=== PATIENT | female | born 1945 | race African-American/Black ===

== ENCOUNTER 2016-10-05 11:05 | Inpatient (IN) ==
[2016-10-05] MEDS ORDERED: ALBUTEROL 2.5 MG/3 ML NEB RESP TX STA (11:55)
[2016-10-05] MEDS ORDERED: diphenhydrAMINE 50 MG/1 ML VIAL IV STA (12:01)
[2016-10-05] MEDS ORDERED: methylPREDNISolone SOD SUC 125 MG/2 ML VIAL IV STA (12:01)
--- NOTE | 2016-10-05 12:13 | Emergency Department Note ---
Avtar Jiang Brooke, am scribing for, and in the presence of, Rodger Winslow MD 11:58 . Nayla Jiang James D, MD, personally performed the services described in this documentation, ascribed by Gabby Nova in my presence, and it is both accurate and complete . Arrival - Arrival Chief Complaint: Upper Respiratory Stated Complaint: Sent to ER by Isaiah Bustillo to see [facility] ED Nursing Triage Note: Patient had CXR done yesterday, was instructed by Dr. Bear's office to come back today to have follow up. C/o productive cough-onset two months ago. Mode of Arrival: Ambulatory Limitations: No Limitations Source: Patient, RN Notes Reviewed Time Seen by Provider: 10/05/16 11:43 - History of Present Illness HPI Narrative: Patient is a 70 year old female who presents to the ED with c/o shortness of breath and cough that is productive. Patient says she has been having problems for a while. She had a chest x-ray done at Dr. Bear's office, yesterday, and was told to come for follow up. Patient says she stopped smoking, six months ago , and says she smoked about a pack of cigarettes a day. Patient has PMHx of HTN , IDDM, and renal failure. She gets dialysis on Saturday, Saturday, and Saturday. She did go on Saturday but the treatment only lasted 2.5 hours because "the power went off." She did not go to dialysis today. Date of Last Menstrual Period: hysterectomy Allergies/Adverse Reactions: Allergies Allergy/AdvReac Type Severity Reaction Status Date / Time acetaminophen [From Tylenol] Allergy Verified 01/12/15 06:25 gabapentin [From Neurontin] Allergy Verified 01/12/15 06:25 IVP Dye Allergy Uncoded 01/12/15 06:25 Home Medications: Home Medications Medication Instructions Recorded Confirmed Type Calcitriol [Rocaltrol] 0.25 mcg PO MOWEFR 01/14/16 10/05/16 History Calcium Acetate 667 mg PO TID W/MEALS 01/14/16 10/05/16 History Carvedilol [Coreg] 12.5 mg PO BID 01/14/16 10/05/16 History Insulin NPH Hum/Reg Insulin Hm 10 unit SUBCUT BID W/MEALS 01/14/16 10/05/16 History [NovoLIN 70/30] Losartan Potassium 25 mg PO QAM 01/14/16 10/05/16 History traMADol TAB [Ultram] 100 mg PO Q6H PRN 01/14/16 10/05/16 History Atorvastatin [Lipitor] 40 mg PO QAM 10/05/16 10/05/16 History Review of System - Review of System 12 point system: reviewed and no additional remarkable complaints except as stated - Review of System Constitutional: Absent: fever Respiratory: Present: cough (productive), other (shortness of breath). Absent: respiratory distress Skin: Absent: rash Medical,Surgical,& Family Hx - Medical History Cardio: History of: Hypertension Neurology: No history of: Seizures Endocrine: History of: Diabetes Mellitus (IDDM) Renal: History of: Dialysis (MWF), Renal Failure - Surgical History Reproductive Surgeries: Surgical HX of;: Hysterectomy - Social History Smoking Status: Former smoker Frequency of Alcohol Use: None Type of Drug Use: None Exam Vital Signs: Vital Signs Temperature 98.4 F 10/05/16 11:08 Pulse Rate 88 10/05/16 12:26 Respiratory Rate 21 10/05/16 13:38 Blood Pressure 171/67 10/05/16 11:08 O2 Sat by Pulse Oximetry 97 10/05/16 11:08 GENERAL: This is a well-nourished well-developed black female in no apparent distress. VITAL SIGNS: Reviewed HEENT: Head is atraumatic and normocephalic. Opacified cornea on the left. Extraocular movements are intact. Oropharynx is benign with moist mucous membranes. NECK: Neck is soft and supple without tenderness. There are no masses. There is no lymphadenopathy. LUNGS: Rhonchi in the right base. Chest rises symmetrically. There is no chest wall tenderness. CV: Heart is regular rate and rhythm without murmurs rubs or gallops. ABDOMEN: Abdomen is soft, nontender to palpation. There are no abdominal abnormal masses palpated. There is no organomegaly. Bowel sounds are present and active. SKIN: Skin is warm and dry. No rash. EXTREMITIES: Patient has full range of motion without tenderness. There is no pedal edema. NEUROLOGIC: Awake alert and oriented 4. Cranial nerves II through XII are grossly intact. Motor is 5 over 5 in all extremities bilaterally. Course - Consultations Consultation #1: Discussed with hospitalist. Patient will be admitted to their service. Time: 13:34 Results - Labs CBC & BMP: 10/05/16 12:13 10/05/16 12:13 Lab Results: I have reviewed the patients labs - Diagnostic Findings Procedure: Chest x-ray: image reviewed by me (Right perihilar mass versus right upper lobe pneumonia.), CT - chest: image reviewed by me (Right upper lobe mass with postobstructive pneumonia.) Disposition Clinical Impression: Pneumonia, Right perihilar mass, ESRD (end stage renal disease) on dialysis, Pulmonary embolus versus tumor thrombus Case discussed with: patient Disposition: Still a Patient Condition: Stable Time of Disposition: 13:34
[2016-10-05] MEDS ORDERED: diphenhydrAMINE 50 MG/1 ML VIAL ONE (12:14)
[2016-10-05] MEDS ORDERED: methylPREDNISolone SOD SUC 125 MG/2 ML VIAL ONE (12:14)
[2016-10-05 12:31] LABS: Basophils # 0.1 10*3/uL (0.0-0.2); Basophils % 0.6 % (0.0-0.8); Eosinophils # 0.2 10*3/uL (0.0-0.87); Eosinophils % 2.1 % (0.00-10.9); Hematocrit 41.2 VOL% (35.7-47.0); Hemoglobin 12.6 GM/DL (12.0-16.0); Immature Granulocytes % 0.9 %; Immature Granulocytes Absolute 0.07 #; Lymphocytes # 2.1 10*3/uL (1.4-4.0); Lymphocytes % 25.7 % (21.3-54.2); Mean Corpuscular HGB Conc 30.6 GM/DL (32-36); Mean Corpuscular Hemoglobin 29 PG (27-34); Mean Corpuscular Volume 95.4 FL (87-102); Mean Platelet Volume 10.6 FL (9.6-12.0); Monocytes # 0.7 10*3/uL (0.11-0.8); Monocytes % 8.9 % (1.7-12.7); Neutrophils % 61.8 % (38.7-73.9); Platelet Count 146 T/CUMM (130-400); Red Blood Count 4.32 MC/CUMM (3.8-5.5); Red Cell Distribution Width 14.6 % (9.3-17.3); White Blood Count 8.1 T/CUMM (4-12)
[2016-10-05 12:53] LABS: Burr Cells Slight; Hypochromasia 1+; Ovalocytes Slight; Platelet Estimate Normal
[2016-10-05 13:00] LABS: Albumin 3.3 G/DL (3.4-5.0); Bilirubin,Total 0.5 MG/DL (0.2-1.0); Calcium 8.9 MG/DL (8.5-10.1); Osmolality,Calculated 288.3 MOS/KG (273-304); Potassium 4.3 MMOL/L (3.5-5.1); Total Protein 7.4 G/DL (6.4-8.3)
[2016-10-05] MEDS ORDERED: PIPERACILLIN/TAZOBACTAM 3,375 MG in SODIUM CHLORIDE 0.9% 100 ML IV STA (13:20)
[2016-10-05] MEDS ORDERED: PIPERACILLIN/TAZOBACTAM 3,375 MG VIAL IV ONE (13:29)
--- NOTE | 2016-10-05 14:08 | XRay Report ---
History: Shortness of breath Date: 10/05/2016 Study: Chest x-ray PA and lateral Comparison exam: 10/04/2016 There is lobular soft tissue density compatible with pathologic lymphadenopathy over the right hilar area. There is also at least one additional noncalcified nodule superimposed over the posterior mid lungs on the lateral view at 18 mm diameter compatible with metastatic disease. The cardiac silhouette is not enlarged. The pulmonary vasculature is upper normal. There is no pleural effusion. There is nonspecific reticular interstitial disease in the lung bases. There is no mami consolidated pneumonia. Osseous structures are unremarkable. Impression: Pathologic lymphadenopathy right hilar area. 18 mm lung nodule suspicious for metastatic disease, seen over the posterior lungs on the lateral view only. PROCEDURE INTERPRETED AT [facility] DEPARTMENT OF RADIOLOGY Final Report Signed by: Dr. Rosa Isela Berry
--- NOTE | 2016-10-05 14:25 | CT Report ---
History: Abnormal chest x-ray. Hilar mass. History of cervical carcinoma Date: 10/05/2016 Study: CT chest with IV contrast Comparison exam: No previous Spiral CT sections were obtained through the lungs following the IV administration of 80 mL of Omnipaque 350 without immediate complication. The CT exam was performed using one or more of the following dose reduction techniques: Automated exposure control, adjustment of the mA and/or kV according to patient size, or use of iterative reconstruction technique. There is a 61 x 70 x 37 mm right hilar mass extending into the right upper lung anteriorly and medially. This abuts the pleura anteriorly and medially. There is a 10 mm noncalcified lung nodule abutting the pleura in the right middle lobe. There is a 20 mm noncalcified pulmonary nodule in the superior segment of the left lower lobe abutting the pleura anteriorly. Right hilar mass encases one of the right upper lobe pulmonary arterial branches. There is some mild patchy infiltrate in the right upper lobe, lobe, and lower lobe compatible with postobstructive atelectasis/infiltrate. There is abnormal filling defect within the descending right pulmonary artery compatible with pulmonary embolic disease which could represent bland or tumor thrombus. There is mild right-sided pleural effusion. There is a 24 mm pathologically enlarged lymph node in the right paratracheal area. There is a 24 mm short axis diameter pathologic lymph node in the right subcarinal area. Spondylotic changes of the spine are present. There is mild diffuse fatty infiltration of the liver. Impression: Right hilar mass with multiple pulmonary nodules and pathologic lymphadenopathy. This is consistent with malignancy. This could all represent metastatic disease in this patient with cervical cancer. This could represent a separate primary lung cancer with thoracic metastatic disease. There is evidence of pulmonary embolic disease to the descending pulmonary artery on the right. This could represent bland or even tumor thrombus. Critical test result. Films were reviewed with Dr. Winslow PROCEDURE INTERPRETED AT [facility] DEPARTMENT OF RADIOLOGY Final Report Signed by: Dr. Rosa Isela Berry
--- NOTE | 2016-10-05 14:50 | Ultrasound Report ---
US venous doppler LE BI Indication: PTE. Comparison: None. Technique: Grayscale, spectral, and color Doppler interrogation of the bilateral lower extremity veins was performed. Augmentation and compression was performed. Findings: Grayscale, color Doppler, and pulsed Doppler evaluation of the veins of the bilateral lower extremity demonstrates no evidence of deep venous thrombosis. IMPRESSION: No evidence of deep venous thrombosis in either lower extremity. PROCEDURE INTERPRETED AT [facility] DEPARTMENT OF RADIOLOGY Final Report Signed by: Dr Sj Mary
[2016-10-05] MEDS ORDERED: ONDANSETRON 4 MG/2 ML VIAL IV PRN (15:19)
[2016-10-05] MEDS ORDERED: DEXTROSE 50% 25 GM/50 ML VIAL IV PRN (15:56)
[2016-10-05] MEDS ORDERED: GLUCAGON 1 MG VIAL IM PRN (15:56)
--- NOTE | 2016-10-05 16:02 | Hospitalist History & Physical ---
Assessment and Plan (1) ESRD (end stage renal disease) on dialysis Status: Acute Assessment and plan: Patient dialyzes on Saturday. Patient is known to Dr. Bolaños. Patient is new to dialysis states she just started 3 weeks ago. Renal has been consulted to see patient. Current Visit: Yes (2) Hilar mass Status: Acute Assessment and plan: CT showed 'right hilar mass with multiple pulmonary nodules and pathologic lymphadenopathy' pulmonology has been consulted. Current Visit: Yes History of Present Illness Chief complaint: Chest x-ray follow-up/cough History of present illness: Ms. Castro is a 70 year old black female patient with a history of hypertension, diabetes, and renal failure. Patient is new to dialysis and is known to Dr. Bolaños. Patient dialyzes on Saturday, Saturday, and Saturday. Patient stated that on Saturday she did not complete the for dialysis schedule because the lights going off and her dialysis center. Patient was seen in Dr. Bear office yesterday for a chest x-ray was instructed to report to the ED today for follow- up. Patient does report intermittent shortness of breath and a cough that is productive. Patient denies any other complaints at this time. The patient is a former smoker states that she quit smoking 6 months ago. Prior to her quitting smoking patient reported that she smoked about a pack of cigarettes a day. Chest x-ray ED show possible pneumonia with head CT obtained showed right Kim massive multiple pulmonary nodules and pathologic lymphadenopathy. Patient will be admitted to the hospitalist service for further evaluation and treatment. Pulmonology will be consulted to see patient. Home Medications Medication Instructions Recorded Confirmed Type Calcitriol [Rocaltrol] 0.25 mcg PO MOWEFR 01/14/16 10/05/16 History Calcium Acetate 667 mg PO TID W/MEALS 01/14/16 10/05/16 History Carvedilol [Coreg] 12.5 mg PO BID 01/14/16 10/05/16 History Insulin NPH Hum/Reg Insulin Hm 10 unit SUBCUT BID W/MEALS 01/14/16 10/05/16 History [NovoLIN 70/30] Losartan Potassium 25 mg PO QAM 01/14/16 10/05/16 History traMADol TAB [Ultram] 100 mg PO Q6H PRN 01/14/16 10/05/16 History Atorvastatin [Lipitor] 40 mg PO QAM 10/05/16 10/05/16 History Allergies Allergy/AdvReac Type Severity Reaction Status Date / Time acetaminophen [From Tylenol] Allergy Verified 01/12/15 06:25 gabapentin [From Neurontin] Allergy Verified 01/12/15 06:25 IVP Dye Allergy Uncoded 01/12/15 06:25 Medical,Surgical,& Family Hx - Medical History Cardio: History of: Hypertension Psychological: No history of: Anxiety Disorders, ADHD, Behavior Problems, Bipolar Disorder, Depression, Previous Suicide Attempt, Psychiatric/Substance Abuse Tx, Schizophrenia, Violent Behavior, Psychiatric Problems Neurology: No history of: Seizures Endocrine: History of: Diabetes Mellitus (IDDM) Renal: History of: Dialysis (MWF), Renal Failure - Surgical History Reproductive Surgeries: Surgical HX of;: Hysterectomy Orthopedic Surgeries: Surgical HX of;: Orthopedic Surgery (left foot 5th toe amputation, left foot surgery) - Social History Smoking Status: Former smoker Frequency of Alcohol Use: None Type of Drug Use: None - Constitutional Constitutional: Absent: chills, fever(s) - EENT Eyes: Present: loss of vision (left eye). Absent: blurry vision Ears: Absent: decreased hearing, ear discharge Nose, mouth and throat: Absent: dysphagia - Respiratory Respiratory: Present: cough (productive) - Gastrointestinal Gastrointestinal: Absent: abdominal pain, nausea, vomiting - Genitourinary Genitourinary: Present: other (oliguria) - Neurological Neurological: Absent: abnormal speech, confusion - Psychiatric Psychiatric: Absent: anxiety Exam - Constitutional Vitals: Period Temp Pulse Resp BP Sys/Montero Pulse Ox Last 24 Hr 98.4 F-98.5 F 87-91 16-21 141-171/67-99 96-99 General appearance: normal weight, no acute distress - Head Head exam: Present: normal inspection, normocephalic - Eye Eye exam: Present: EOMI, other (pt. blind in left eye) - ENT ENT exam: Present: normal exam - Respiratory Respiratory exam: Present: other (coarse) - Cardiovascular Cardiovascular exam: Present: regular rate and rhythm - GI/Abdominal GI/Abdominal exam: Present: normal bowel sounds, soft. Absent: tenderness - Extremities Exam Extremities exam: Present: normal capillary refill, full ROM. Absent: edema - Neurological Exam Neurological exam: Present: alert, oriented X3 - Psychiatric Psychiatric exam: Present: normal affect, normal mood - Skin Skin exam: Present: normal color, warm, dry Results - Labs CBC & BMP: 10/05/16 12:13 10/05/16 12:13 Lab Results: I have reviewed the past 24 hour labs
[2016-10-05 16:34] LABS: Hepatitis A Ab IgM Quant 0.17 Index; Hepatitis A Ab IgM Result Negative (Negative); Hepatitis B Core IgM Quant 0.17 Index; Hepatitis B Core IgM Result Negative (Negative); Hepatitis B Surface Ag Quant 0.36 Index; Hepatitis B Surface Ag Result Negative (Negative); Hepatitis C Virus Ab Quant 0.25 Index; Hepatitis C Virus Ab Result Negative (Negative)
[2016-10-05] MEDS: INSULIN LISPRO 100 UNIT/ML SUBCUT SCH ×2 (18:12→21:27)
[2016-10-05] MEDS: CALCITRIOL 0.25 MCG CAPSULE PO SCH (18:13)
[2016-10-05] MEDS: CALCIUM ACETATE 667 MG CAPSULE PO SCH (18:14)
[2016-10-05] MEDS: methylPREDNISolone SOD SUC 125 MG/2 ML VIAL IV SCH (20:10)
[2016-10-05] MEDS: CARVEDILOL 12.5 MG TABLET PO SCH (20:14)
[2016-10-05] MEDS: LEVOFLOXACIN INJ 750 MG in PREMIX 1 EACH IV SCH (20:14)
[2016-10-05] MEDS: ALBUTEROL/IPRATROPIUM 3 ML NEB RESP TX SCH ×2 (20:14→23:46)
[2016-10-06] MEDS: methylPREDNISolone SOD SUC 125 MG/2 ML VIAL IV SCH ×2 (01:47→10:12)
[2016-10-06] MEDS: ALBUTEROL/IPRATROPIUM 3 ML NEB RESP TX SCH ×6 (03:42→23:46)
[2016-10-06 03:51] LABS: Hematocrit 44.4 VOL% (35.7-47.0); Hemoglobin 13.6 GM/DL (12.0-16.0); Immature Granulocytes % 0.4 %; Immature Granulocytes Absolute 0.02 #; Lymphocytes # 0.7 10*3/uL (1.4-4.0); Mean Corpuscular HGB Conc 30.6 GM/DL (32-36); Mean Corpuscular Hemoglobin 28 PG (27-34); Mean Corpuscular Volume 92.3 FL (87-102); Monocytes # 0.1 10*3/uL (0.11-0.8); Monocytes % 1.4 % (1.7-12.7); Neutrophils # 4.3 10*3/uL (1.4-7.4); Neutrophils % 85.2 % (38.7-73.9); Platelet Count 216 T/CUMM (130-400); Red Blood Count 4.81 MC/CUMM (3.8-5.5); Red Cell Distribution Width 14.4 % (9.3-17.3); White Blood Count 5.1 T/CUMM (4-12)
[2016-10-06 04:30] LABS: Calcium 8.7 MG/DL (8.5-10.1); Magnesium 2.2 MG/DL (1.8-2.4); Osmolality,Calculated 287.1 MOS/KG (273-304); Potassium 4.3 MMOL/L (3.5-5.1); Risk Ratio 1.94; Thyroid Stimulating Hormone 0.055 uIU/ml (0.358-3.74); VLDL CHOLESTEROL 7.8 MG/DL
[2016-10-06] MEDS: INSULIN LISPRO 100 UNIT/ML SUBCUT SCH ×4 (08:51→20:52)
[2016-10-06] MEDS: CALCIUM ACETATE 667 MG CAPSULE PO SCH ×3 (08:52→17:07)
[2016-10-06] MEDS: CARVEDILOL 12.5 MG TABLET PO SCH ×2 (08:52→20:09)
[2016-10-06] MEDS: PANTOPRAZOLE 40 MG TABLET PO SCH (08:52)
[2016-10-06] MEDS: ATORVASTATIN 40 MG TABLET PO SCH (08:52)
[2016-10-06] MEDS: LOSARTAN 25 MG TABLET PO SCH (08:52)
--- NOTE | 2016-10-06 11:02 | Pulmonology Consult Note ---
Assessment and Plan (1) Mass of upper lobe of right lung Status: Acute Assessment and plan: Radiographically this appears to be a bronchogenic carcinoma. Especially in view of her long history of smoking up until recently. This was discussed with the patient and her family. We will plan bronchoscopy with biopsies on Saturday. Will need to coordinate with her dialysis. Current Visit: Yes (2) Pneumonia Status: Acute Assessment and plan: May well have some pneumonia. Agree with antibiotics. Believe most of what we see on x-ray is mass. Current Visit: Yes (3) ESRD (end stage renal disease) on dialysis Status: Acute Assessment and plan: Continuing with dialysis. Current Visit: Yes (4) Hilar mass Status: Acute Assessment and plan: Likely bronchogenic carcinoma. Current Visit: Yes History of Present Illness Chief complaint: Cough congestion right hilar mass History of present illness: Ms. Castro is a 70 year old female who had the onset about a month ago for cough. She was given an inhaler. Cough is persisted. She has had some thick white sputum but no fever no hemoptysis and no purulent sputum. She is a long-term smoker quit about 6 months ago. She has had a little weight loss. Chest x-ray showed right hilar enlargement. CT scan shows a mass in the anterior segment of the right upper lobe. Also multiple other pulmonary nodules and mediastinal adenopathy. This is highly likely to be bronchogenic carcinoma. This was discussed with the patient and her family member in the room. Home Medications Medication Instructions Recorded Confirmed Type Calcitriol [Rocaltrol] 0.25 mcg PO MOWEFR 01/14/16 10/05/16 History Calcium Acetate 667 mg PO TID W/MEALS 01/14/16 10/05/16 History Carvedilol [Coreg] 12.5 mg PO BID 01/14/16 10/05/16 History Insulin NPH Hum/Reg Insulin Hm 10 unit SUBCUT BID W/MEALS 01/14/16 10/05/16 History [NovoLIN 70/30] Losartan Potassium 25 mg PO QAM 01/14/16 10/05/16 History traMADol TAB [Ultram] 100 mg PO Q6H PRN 01/14/16 10/05/16 History Atorvastatin [Lipitor] 40 mg PO QAM 10/05/16 10/05/16 History Allergies Allergy/AdvReac Type Severity Reaction Status Date / Time acetaminophen [From Tylenol] Allergy Verified 01/12/15 06:25 gabapentin [From Neurontin] Allergy Verified 01/12/15 06:25 IVP Dye Allergy Uncoded 01/12/15 06:25 - Constitutional Constitutional: Present: weight loss - EENT Eyes: Present: requires corrective lense (Patient is blind in left eye) - Respiratory Respiratory: Present: cough, dyspnea on exertion Exam (Pulmonay) H&P - Constitutional Vitals: Period Temp Pulse Resp BP Sys/Montero Pulse Ox Last 24 Hr 97.2 F-98.5 F 71-96 16-21 136-171/63-99 94-99 Exam: Patient is alert and oriented. Vital signs are normal. Right pupil reactive to light. Left cornea is opaque. Throat is clear. Neck supple no bruits. Chest shows some expiratory wheezes localized on the right side. Heart normal rate rhythm no murmurs. Abdomen soft nontender no masses. Extremities no clubbing cyanosis or edema. Calves nontender. Medical,Surgical,& Family Hx - Medical History Cardio: History of: Hypertension Psychological: No history of: Anxiety Disorders, ADHD, Behavior Problems, Bipolar Disorder, Depression, Previous Suicide Attempt, Psychiatric/Substance Abuse Tx, Schizophrenia, Violent Behavior, Psychiatric Problems Neurology: No history of: Seizures Endocrine: History of: Diabetes Mellitus (IDDM) Renal: History of: Dialysis (MWF), Renal Failure - Surgical History Reproductive Surgeries: Surgical HX of;: Hysterectomy Orthopedic Surgeries: Surgical HX of;: Orthopedic Surgery (left foot 5th toe amputation, left foot surgery) - Social History Smoking Status: Former smoker Frequency of Alcohol Use: None Type of Drug Use: None Results - Labs CBC & BMP: 10/06/16 03:17 10/06/16 03:17 Lab Results: I have reviewed the past 24 hour labs - Diagnostic Findings Procedure: Chest x-ray: image reviewed by me (Right hilar mass. Pulmonary nodule posteriorly on the right side.), CT - chest: image reviewed by me (Mass in anterior segment right upper lobe. Also multiple other pulmonary nodules and mediastinal adenopathy)
[2016-10-06] MEDS ORDERED: methylPREDNISolone SOD SUC 125 MG/2 ML VIAL IV SCH (11:07)
--- NOTE | 2016-10-06 11:34 | Nephrology Consult Note ---
History of Present Illness Chief complaint: Cough with a lung mass seen on x-ray History of present illness: Ms. Castro is a 70 year old female who dialyzes on a Saturday basis in [facility]. Patient was seen on dialysis this past week and complained of some cough a chest x-ray was subsequently done which showed some changes in her right upper lobe. The patient was subsequently dialyzed again this past Saturday complaining of some cough and was told to go to the emergency room. She was subsequently admitted to the hospital for further workup of this right upper lobe mass. The patient states she has had some cough productive of thick sputum associated with this for some time. She also has had some weight loss. The patient has a 50+ year history of smoking. Patient was started on dialysis a few months ago. She complains of some bone pain but states this is been present for years. The patient has a history of cervical carcinoma which was treated many years ago. The patient since admission has had a CT scan of her chest which shows a lesion in the right upper chest area associated with some right-sided perihilar adenopathy. ROS: Head - denies headaches ENT -positive sore throat Lymphatics -complains of a bump in her left neck area on occasion Hematology - denies bleeding problems Heart - denies chest pain Lungs - denies shortness of breath Abdomen - denies abdominal pain Musculoskeletal -positive bone pain Skin - denies rash Neurology -reports having 2 transient ischemic attacks in the past General - denies fever PE: General: in no acute distress Eyes: Right pupil is round and reactive, left pupil is opaque, conjunctivae are clear ENT: Nose is clear, O/P is benign Neck: Supple, no thyromegaly Lymphatics: No cervical, supraclavicular or axillary adenopathy Heart: Regular rate and rhythm, no edema Lungs: Patient has some wheezing at the left base and some rhonchorous sounds throughout her right chest area posteriorly, chest expansion symmetric Abdomen: Soft, normoactive bowel sounds, no hepatomegaly Musculoskeletal: No joint erythema or effusions or joint asymmetry Skin: Normal turgor, normal hydration, no rash Neuro/Psych: Alert and cooperative with fair insight Home Medications Medication Instructions Recorded Confirmed Type Calcitriol [Rocaltrol] 0.25 mcg PO MOWEFR 01/13/10/05/16 History Calcium Acetate 667 mg PO TID W/MEALS 01/14/16 10/05/16 History Carvedilol [Coreg] 12.5 mg PO BID 01/14/16 10/05/16 History Insulin NPH Hum/Reg Insulin Hm 10 unit SUBCUT BID W/MEALS 01/14/16 10/05/16 History [NovoLIN 70/30] Losartan Potassium 25 mg PO QAM 01/14/16 10/05/16 History traMADol TAB [Ultram] 100 mg PO Q6H PRN 01/14/16 10/05/16 History Atorvastatin [Lipitor] 40 mg PO QAM 10/05/16 10/05/16 History Allergies Allergy/AdvReac Type Severity Reaction Status Date / Time acetaminophen [From Tylenol] Allergy Verified 01/12/15 06:25 gabapentin [From Neurontin] Allergy Verified 01/12/15 06:25 IVP Dye Allergy Uncoded 01/12/15 06:25 Medical,Surgical,& Family Hx - Medical History Cardio: History of: Hypertension Psychological: No history of: Anxiety Disorders, ADHD, Behavior Problems, Bipolar Disorder, Depression, Previous Suicide Attempt, Psychiatric/Substance Abuse Tx, Schizophrenia, Violent Behavior, Psychiatric Problems Neurology: No history of: Seizures Endocrine: History of: Diabetes Mellitus (IDDM) Renal: History of: Dialysis (MWF), Renal Failure - Surgical History Reproductive Surgeries: Surgical HX of;: Hysterectomy Orthopedic Surgeries: Surgical HX of;: Orthopedic Surgery (left foot 5th toe amputation, left foot surgery) - Family History Family History: Reports;: Family Hypertension - Social History Smoking Status: Former smoker (Quit about 6 months ago) Frequency of Alcohol Use: None Type of Drug Use: None Exam - Vital Signs Vital signs: Period Temp Pulse Resp BP Sys/Montero Pulse Ox Last 24 Hr 97.2 F-98.5 F 71-96 16-21 136-163/63-99 94-100 Results - Labs CBC & BMP: 10/06/16 03:17 10/06/16 03:17 Assessment and Plan (1) ESRD (end stage renal disease) on dialysis Status: Acute Assessment and plan: We will continue hemodialysis support Current Visit: Yes (2) Mass of upper lobe of right lung Status: Acute Assessment and plan: Workup per pulmonary medicine, sounds like she will have a bronchoscopy Saturday. Current Visit: Yes (3) Anemia Status: Acute Assessment and plan: Patient's hematocrit around 30% I will start her on EPO Current Visit: Yes (4) Secondary hyperparathyroidism Status: Acute Assessment and plan: We will continue her phosphate binder and Rocaltrol Current Visit: Yes (5) Hypertension Status: Acute Assessment and plan: We will continue her present antihypertensives Current Visit: Yes (6) Diabetes mellitus Status: Acute Assessment and plan: Continue present hypoglycemic regimen Current Visit: Yes (7) Hyperlipidemia Status: Acute Assessment and plan: Continue her statin Current Visit: Yes
[2016-10-06] MEDS ORDERED: EPOETIN ALFA 2,000 UNIT/1 ML VIAL IV PRN (11:38)
[2016-10-06 12:04] LABS: INR 1.1; PT Patient Result 11.7 SECS
--- NOTE | 2016-10-06 15:56 | Hospitalist Progress Note ---
Assessment and Plan - Time spent with patient Time spent with patient: Greater than 30 minutes (1) Mass of upper lobe of right lung Status: Acute Assessment and plan: With hilar mass. Pulmonary involved and plan set in place. Current Visit: Yes (2) Diabetes mellitus Status: Acute Assessment and plan: Continue current management. Current Visit: Yes (3) ESRD (end stage renal disease) on dialysis Status: Acute Assessment and plan: Nephrology to continue HD. Current Visit: Yes (4) Pneumonia Status: Acute Assessment and plan: Continue antibiotics. Current Visit: Yes Hospitalist: Subjective Interval history: No complaints or overnight events. Exam - Constitutional Vitals: Period Temp Pulse Resp BP Sys/Montero Pulse Ox Last 24 Hr 97.2 F-97.9 F 71-103 16-20 136-152/63-85 94-100 General appearance: no acute distress - Head Head exam: Present: normocephalic, atraumatic - Eye Eye exam: Present: EOMI Pupils: Present: DONYA - ENT ENT exam: Present: normal exam - Neck Neck exam: Present: normal inspection - Respiratory Respiratory exam: Present: clear to auscultation bilaterally. Absent: rhonchi, wheezes - Cardiovascular Cardiovascular exam: Present: regular rate and rhythm. Absent: gallop, rubs, systolic murmur - GI/Abdominal GI/Abdominal exam: Present: normal bowel sounds, soft. Absent: distended, firm , guarding, tenderness, rebound - Extremities Exam Extremities exam: Present: normal inspection. Absent: calf tenderness, edema Results - Labs CBC & BMP: 10/06/16 03:17 10/06/16 03:17 Lab Results: I have reviewed the past 24 hour labs
[2016-10-06] MEDS: methylPREDNISolone SOD SUC 40 MG/1 ML VIAL IV SCH (17:07)
[2016-10-07] MEDS: methylPREDNISolone SOD SUC 40 MG/1 ML VIAL IV SCH ×3 (01:28→18:10)
[2016-10-07] MEDS: ALBUTEROL/IPRATROPIUM 3 ML NEB RESP TX SCH ×6 (03:20→23:55)
[2016-10-07 04:29] LABS: Basophils % 0.1 % (0.0-0.8); Hematocrit 40.7 VOL% (35.7-47.0); Immature Granulocytes % 0.5 %; Immature Granulocytes Absolute 0.07 #; Lymphocytes # 1.1 10*3/uL (1.4-4.0); Lymphocytes % 6.9 % (21.3-54.2); Mean Corpuscular HGB Conc 31.9 GM/DL (32-36); Mean Corpuscular Hemoglobin 29 PG (27-34); Mean Corpuscular Volume 91.1 FL (87-102); Mean Platelet Volume 10.2 FL (9.6-12.0); Monocytes # 0.6 10*3/uL (0.11-0.8); Monocytes % 3.6 % (1.7-12.7); Neutrophils # 13.8 10*3/uL (1.4-7.4); Neutrophils % 88.9 % (38.7-73.9); Platelet Count 229 T/CUMM (130-400); Red Blood Count 4.47 MC/CUMM (3.8-5.5); Red Cell Distribution Width 14.6 % (9.3-17.3); White Blood Count 15.5 T/CUMM (4-12)
[2016-10-07 04:53] LABS: Calcium 8.9 MG/DL (8.5-10.1); Magnesium 2.4 MG/DL (1.8-2.4); Potassium 4.3 MMOL/L (3.5-5.1)
--- NOTE | 2016-10-07 09:00 | Pulmonology Progress Note ---
Pulmonary - PN: Subj Interval history: This 70-year-old lady has a mass on her right long and we plan to do bronchoscopy in the morning. She is feeling a little better today. She did have some bronchospasm yesterday which is improved. Exam (Progress Note) - Constitutional Vitals: Period Temp Pulse Resp BP Sys/Montero Pulse Ox Last 24 Hr 97.5 F-98.5 F 87-107 17-20 128-147/67-79 97-100 Exam: Patient's alert vital signs normal. Right pupil react to light. Left pupil opaque. Throat is clear. Neck supple no bruits. Chest reveals some mild expiratory rhonchi. Heart normal rate and rhythm no murmurs. Abdomen soft no masses. Extremities no clubbing cyanosis edema. Calves nontender. Results - Labs CBC & BMP: 10/07/16 02:41 10/07/16 02:41 Lab Results: I have reviewed the past 24 hour labs Assessment and Plan (1) Mass of upper lobe of right lung Status: Acute Assessment and plan: Radiographically this appears to be a bronchogenic carcinoma. Especially in view of her long history of smoking up until recently. This was discussed with the patient and her family. We will plan bronchoscopy with biopsies on Saturday. Will need to coordinate with her dialysis. 10/07/2016 plan bronchoscopy with biopsies of anterior segment right upper lobe in the morning. Current Visit: Yes (2) Pneumonia Status: Acute Assessment and plan: May well have some pneumonia. Agree with antibiotics. Believe most of what we see on x-ray is mass. 10/07/2016 continuing with empiric antibiotics. Current Visit: Yes (3) ESRD (end stage renal disease) on dialysis Status: Acute Assessment and plan: Continuing with dialysis. 10/07/2016 presumably will dialyze after bronchoscopy tomorrow Current Visit: Yes (4) Hilar mass Status: Acute Assessment and plan: Likely bronchogenic carcinoma. Current Visit: Yes
[2016-10-07] MEDS: INSULIN LISPRO 100 UNIT/ML SUBCUT SCH ×4 (09:20→21:16)
[2016-10-07] MEDS: ATORVASTATIN 40 MG TABLET PO SCH (09:21)
[2016-10-07] MEDS: LOSARTAN 25 MG TABLET PO SCH (09:21)
[2016-10-07] MEDS: PANTOPRAZOLE 40 MG TABLET PO SCH (09:21)
[2016-10-07] MEDS: CALCIUM ACETATE 667 MG CAPSULE PO SCH ×3 (09:21→18:05)
[2016-10-07] MEDS: CARVEDILOL 12.5 MG TABLET PO SCH ×2 (09:21→20:30)
--- NOTE | 2016-10-07 13:01 | Hospitalist Progress Note ---
Assessment and Plan - Time spent with patient Time spent with patient: Greater than 30 minutes (1) Mass of upper lobe of right lung Status: Acute Assessment and plan: With hilar mass. Pulmonary involved and plan set in place. Current Visit: Yes (2) Diabetes mellitus Status: Acute Assessment and plan: Continue current management. Current Visit: Yes (3) ESRD (end stage renal disease) on dialysis Status: Acute Assessment and plan: Nephrology to continue HD. Current Visit: Yes (4) Pneumonia Status: Acute Assessment and plan: Continue antibiotics. Current Visit: Yes Hospitalist: Subjective Interval history: No complaints currently. Exam - Constitutional Vitals: Period Temp Pulse Resp BP Sys/Montero Pulse Ox Last 24 Hr 97.5 F-98.5 F 87-103 17-20 128-147/67-79 97-100 General appearance: no acute distress - Head Head exam: Present: normocephalic, atraumatic - Eye Eye exam: Present: EOMI Pupils: Present: DONYA - ENT ENT exam: Present: normal exam - Neck Neck exam: Present: normal inspection - Respiratory Respiratory exam: Present: clear to auscultation bilaterally. Absent: rhonchi, wheezes - Cardiovascular Cardiovascular exam: Present: regular rate and rhythm. Absent: gallop, rubs, systolic murmur - GI/Abdominal GI/Abdominal exam: Present: normal bowel sounds, soft, other. Absent: distended , firm, guarding, tenderness, rebound - Extremities Exam Extremities exam: Present: normal inspection. Absent: calf tenderness, edema Results - Labs CBC & BMP: 10/07/16 02:41 10/07/16 02:41 Lab Results: I have reviewed the past 24 hour labs
--- NOTE | 2016-10-07 16:45 | Nephrology Progress Note ---
Nephrology - PN: Subj Interval history: Patient states her breathing is much improved. Review of systems GI she denies nausea or vomiting Physical exam general patient is in no acute distress, she has no pitting edema Assessment/plan 1. Right upper lobe lung lesion with associated right hilar mass-continue workup 2. Hypertension this is controlled 3. Diabetes mellitus this is controlled 4. End-stage renal disease we will continue hemodialysis support Exam (PN)-Nephrology - Vital Signs Vital signs: Period Temp Pulse Resp BP Sys/Montero Pulse Ox Last 24 Hr 97.5 F-98.5 F 87-96 17-20 135-147/68-79 97-100 - Lab 10/07/16 02:41 10/07/16 02:41 Most recent lab results Calcium 8.9 MG/DL (8.5-10.1) 10/07/16 02:41 Magnesium 2.4 MG/DL (1.8-2.4) 10/07/16 02:41 Assessment and Plan (1) ESRD (end stage renal disease) on dialysis Status: Acute Assessment and plan: We will continue hemodialysis support Current Visit: Yes (2) Mass of upper lobe of right lung Status: Acute Assessment and plan: Workup per pulmonary medicine, sounds like she will have a bronchoscopy Saturday. Current Visit: Yes (3) Anemia Status: Acute Assessment and plan: Patient's hematocrit around 30% I will start her on EPO Current Visit: Yes (4) Secondary hyperparathyroidism Status: Acute Assessment and plan: We will continue her phosphate binder and Rocaltrol Current Visit: Yes (5) Hypertension Status: Acute Assessment and plan: We will continue her present antihypertensives Current Visit: Yes (6) Diabetes mellitus Status: Acute Assessment and plan: Continue present hypoglycemic regimen Current Visit: Yes (7) Hyperlipidemia Status: Acute Assessment and plan: Continue her statin Current Visit: Yes
[2016-10-07] MEDS: LEVOFLOXACIN INJ 750 MG in PREMIX 1 EACH IV SCH (18:10)
[2016-10-08] MEDS: methylPREDNISolone SOD SUC 40 MG/1 ML VIAL IV SCH ×3 (01:45→17:32)
[2016-10-08] MEDS: ALBUTEROL/IPRATROPIUM 3 ML NEB RESP TX SCH ×6 (03:22→23:45)
[2016-10-08 06:23] LABS: Basophils % 0.1 % (0.0-0.8); Hematocrit 43.3 VOL% (35.7-47.0); Hemoglobin 13.8 GM/DL (12.0-16.0); Immature Granulocytes % 0.8 %; Immature Granulocytes Absolute 0.13 #; Lymphocytes # 0.7 10*3/uL (1.4-4.0); Lymphocytes % 4.5 % (21.3-54.2); Mean Corpuscular HGB Conc 31.9 GM/DL (32-36); Mean Corpuscular Hemoglobin 29 PG (27-34); Mean Corpuscular Volume 91.5 FL (87-102); Mean Platelet Volume 10.4 FL (9.6-12.0); Monocytes # 0.2 10*3/uL (0.11-0.8); Monocytes % 1.5 % (1.7-12.7); Neutrophils # 14.3 10*3/uL (1.4-7.4); Neutrophils % 93.1 % (38.7-73.9); Platelet Count 228 T/CUMM (130-400); Red Blood Count 4.73 MC/CUMM (3.8-5.5); Red Cell Distribution Width 14.6 % (9.3-17.3); White Blood Count 15.4 T/CUMM (4-12)
[2016-10-08] MEDS ORDERED: PROMETHAZINE 25 MG/1 ML VIAL IM ONE (07:00)
[2016-10-08] MEDS ORDERED: MEPERIDINE 50 MG/1 ML VIAL IM ONE (07:00)
[2016-10-08 07:03] LABS: Calcium 8.9 MG/DL (8.5-10.1); Osmolality,Calculated 293.1 MOS/KG (273-304); Potassium 4.6 MMOL/L (3.5-5.1)
[2016-10-08] MEDS ORDERED: MIDAZOLAM 2 MG/2 ML VIAL ONE (07:05)
[2016-10-08 07:15] LABS: Giant Platelets Few; Hypochromasia 1+; Lymphocytes 5 % (20-55); Platelet Estimate Adequate; Segmented Neutrophils 95 % (50-85); Total Cells Counted 100
[2016-10-08] MEDS ORDERED: LIDOCAINE 1% 20 ML VIAL MISC INJ ONE (07:30)
[2016-10-08] MEDS ORDERED: MIDAZOLAM 2 MG/2 ML VIAL IV ONE (07:30)
[2016-10-08] MEDS ORDERED: EPINEPHrine 1 MG/ML VIAL ET ONE (07:56)
--- NOTE | 2016-10-08 08:09 | Operative Note ---
Date of procedure: 10/08/16 (Fiberoptic bronchoscopy with biopsies and brushings anterior segment right upper lobe) Pre-op diagnosis: Right upper lobe lung mass suspect bronchogenic carcinoma Post-op diagnosis: same Procedure: Patient was given preoperative medications on the lira and sent to the endoscopy suite. After an appropriate timeout to be sure we were dealing with Amara Castro, the patient was topically anesthetized in the nose and nasopharynx with Xylocaine. 3 L of nasal oxygen was placed in the right naris. She was given 4 mg of Versed intravenously to the point of sedation. The fiberoptic bronchoscope was introduced via the left naris. The vocal cords were identified and noted to function normally with phonation. After further topical anesthesia the trachea was entered. It was free of lesions. There were increased secretions in the lower trachea. The sony was slightly widened. The left lung showed increased secretions which were irrigated and removed. There were no visible lesions. On the right side the right middle and lower lobes showed welled up increased secretions. These were irrigated and removed. The right upper lobe showed narrowing of the anterior segment. There was a mucous plug in it. That was suctioned and removed and behind that was visible endobronchial tumor. Photos were taken. We obtained 2 biopsies and one brushing of this area. It it bled after the second biopsy. We used the scope tip pressure, I saline irrigation, and 2 cc of 1-1000 epinephrine to get the bleeding to stop. We visualized area noted that there was no active bleeding. The bronchoscope was removed. Patient returned to her room in stable condition. Her oxygen saturation remained at 95% or above throughout the procedure. Anesthesia: conscious sedation Surgeon / Physician: Herbie Park Estimated blood loss: minimal Specimens: other (Brushings 1 right upper lobe, biopsies 2 right upper lobe, bronchial washings) Condition: stable Disposition: floor Results - Labs CBC & BMP: 10/08/16 05:39 10/08/16 05:39 Discharge Plan - Discharge Medications No Action Calcitriol [Rocaltrol] 0.25 mcg PO MOWEFR Losartan Potassium 25 mg PO QAM Insulin NPH Hum/Reg Insulin Hm [NovoLIN 70/30] 10 unit SUBCUT BID W/MEALS Carvedilol [Coreg] 12.5 mg PO BID traMADol TAB [Ultram] 100 mg PO Q6H PRN PRN Reason: Pain Calcium Acetate 667 mg PO TID W/MEALS Atorvastatin [Lipitor] 40 mg PO QAM - Follow Up or Referral - Forms/Instructions
--- NOTE | 2016-10-08 08:12 | Pulmonology Progress Note ---
Pulmonary - PN: Subj Interval history: This 70-year-old lady has a mass on her right long and we plan to do bronchoscopy in the morning. She is feeling a little better today. She did have some bronchospasm yesterday which is improved. 10/08/2016 patient had no new complaints overnight. She was evaluated and examined prior to bronchoscopy. Has a right upper lobe lung mass and signs and symptoms of pneumonia. Exam (Progress Note) - Constitutional Vitals: Period Temp Pulse Resp BP Sys/Montero Pulse Ox Last 24 Hr 97.7 F-99.1 F 92-111 10-25 138-201/68-103 94-100 Exam: Patient's alert vital signs normal. Right pupil react to light. Left pupil opaque. Throat is clear. Neck supple no bruits. Chest reveals some mild expiratory rhonchi. Heart normal rate and rhythm no murmurs. Abdomen soft no masses. Extremities no clubbing cyanosis edema. Calves nontender. Results - Labs CBC & BMP: 10/08/16 05:39 10/08/16 05:39 Lab Results: I have reviewed the past 24 hour labs Assessment and Plan (1) Mass of upper lobe of right lung Status: Acute Assessment and plan: Radiographically this appears to be a bronchogenic carcinoma. Especially in view of her long history of smoking up until recently. This was discussed with the patient and her family. We will plan bronchoscopy with biopsies on Saturday. Will need to coordinate with her dialysis. 10/07/2016 plan bronchoscopy with biopsies of anterior segment right upper lobe in the morning. 10/08/2016 patient had bronchoscopy this morning with visible endobronchial tumor noted in the anterior segment right upper lobe. Also had a good bit of retained secretions and purulent appearing material. I think she has both lung cancer and pneumonia. Current Visit: Yes (2) Pneumonia Status: Acute Assessment and plan: May well have some pneumonia. Agree with antibiotics. Believe most of what we see on x-ray is mass. 10/07/2016 continuing with empiric antibiotics. 10/08/2016 continuing with empiric antibiotics. Culture should be back in a couple of days from bronchoscopy Current Visit: Yes (3) ESRD (end stage renal disease) on dialysis Status: Acute Assessment and plan: Continuing with dialysis. 10/07/2016 presumably will dialyze after bronchoscopy tomorrow 10/08/2016 should be ready for dialysis later today. Current Visit: Yes (4) Hilar mass Status: Acute Assessment and plan: Likely bronchogenic carcinoma. 10/08/2016 right upper lobe anterior segment mass. Also has adenopathy. Likely advanced stage lung cancer. Current Visit: Yes
[2016-10-08] MEDS ORDERED: EPINEPHrine 1 MG/ML VIAL ONE (08:26)
[2016-10-08] MEDS: CARVEDILOL 12.5 MG TABLET PO SCH ×2 (10:12→21:47)
[2016-10-08] MEDS: PANTOPRAZOLE 40 MG TABLET PO SCH (10:12)
[2016-10-08] MEDS: ATORVASTATIN 40 MG TABLET PO SCH (10:12)
[2016-10-08] MEDS: CALCIUM ACETATE 667 MG CAPSULE PO SCH ×3 (10:13→17:33)
[2016-10-08] MEDS: INSULIN LISPRO 100 UNIT/ML SUBCUT SCH ×4 (10:15→22:00)
[2016-10-08] MEDS: LOSARTAN 25 MG TABLET PO SCH (10:16)
--- NOTE | 2016-10-08 12:40 | XRay Report ---
Referring Physician: Herbie Park MD Exam: XR chest 1V portable Date: October 08, 2016 at 9:30 AM Reason: Post bronchoscopy Comparison: Chest [address] chest October 05, 2016 Findings: The cardiac silhouette is normal in size. A right hilar mass is again present and is concerning for a neoplastic process. Multiple pulmonary nodules were seen on the recent CT but are not well demonstrated on this study. There is likely mild associated postobstructive change within the right lung. A calcified granuloma is also noted within the right lower lung zone. No pneumothorax or pleural effusion is identified. The osseous structures appear stable. Impression: 1. The patient is status post bronchoscopy. No pneumothorax is identified. 2. A right hilar mass is again present and is concerning for a neoplastic process. PROCEDURE INTERPRETED AT [facility] DEPARTMENT OF RADIOLOGY Final Report Signed by: Dr. Crystal Strange
--- NOTE | 2016-10-08 12:48 | Nephrology Progress Note ---
Nephrology - PN: Subj Interval history: Patient is seen on hemodialysis, she is tolerating this well will continue her treatment unchanged Assessment/plan 1. Right upper lobe lung lesion-this patient had a bronchoscopy this morning there was some worrisome tumor-looking findings on bronchoscopy will follow-up pathology 2. End-stage renal disease-we will continue hemodialysis support 3. Hypertension 4. Diabetes mellitus Exam (PN)-Nephrology - Vital Signs Vital signs: Period Temp Pulse Resp BP Sys/Montero Pulse Ox Last 24 Hr 97.7 F-99.1 F 92-111 10-25 138-201/69-103 94-100 - Lab 10/08/16 05:39 10/08/16 05:39 Most recent lab results Calcium 8.9 MG/DL (8.5-10.1) 10/08/16 05:39 Magnesium 2.4 MG/DL (1.8-2.4) 10/07/16 02:41 Assessment and Plan (1) ESRD (end stage renal disease) on dialysis Status: Acute Assessment and plan: We will continue hemodialysis support Current Visit: Yes (2) Mass of upper lobe of right lung Status: Acute Assessment and plan: Workup per pulmonary medicine, sounds like she will have a bronchoscopy Saturday. Current Visit: Yes (3) Anemia Status: Acute Assessment and plan: Patient's hematocrit around 30% I will start her on EPO Current Visit: Yes (4) Secondary hyperparathyroidism Status: Acute Assessment and plan: We will continue her phosphate binder and Rocaltrol Current Visit: Yes (5) Hypertension Status: Acute Assessment and plan: We will continue her present antihypertensives Current Visit: Yes (6) Diabetes mellitus Status: Acute Assessment and plan: Continue present hypoglycemic regimen Current Visit: Yes (7) Hyperlipidemia Status: Acute Assessment and plan: Continue her statin Current Visit: Yes
--- NOTE | 2016-10-08 15:34 | Hospitalist Progress Note ---
Assessment and Plan - Time spent with patient Time spent with patient: Greater than 30 minutes (1) Mass of upper lobe of right lung Status: Acute Assessment and plan: With hilar mass. Await results of pathology. Current Visit: Yes (2) Diabetes mellitus Status: Acute Assessment and plan: Continue current management. Current Visit: Yes (3) ESRD (end stage renal disease) on dialysis Status: Acute Assessment and plan: Nephrology to continue HD. Current Visit: Yes (4) Pneumonia Status: Acute Assessment and plan: Continue antibiotics. Current Visit: Yes Hospitalist: Subjective Interval history: Patient had a bronchoscopy today. Currently has no complaints she sitting comfortably in her chair. Exam - Constitutional Vitals: Period Temp Pulse Resp BP Sys/Montero Pulse Ox Last 24 Hr 97.7 F-99.1 F 92-111 10-25 138-201/69-103 94-100 General appearance: no acute distress - Head Head exam: Present: normocephalic, atraumatic - Eye Eye exam: Present: EOMI Pupils: Present: DONYA - ENT ENT exam: Present: normal exam - Neck Neck exam: Present: normal inspection - Respiratory Respiratory exam: Present: clear to auscultation bilaterally. Absent: rhonchi, wheezes - Cardiovascular Cardiovascular exam: Present: regular rate and rhythm. Absent: gallop, rubs, systolic murmur - GI/Abdominal GI/Abdominal exam: Present: normal bowel sounds, soft. Absent: distended, firm , guarding, tenderness, rebound - Extremities Exam Extremities exam: Present: normal inspection. Absent: calf tenderness, edema Results - Labs CBC & BMP: 10/08/16 05:39 10/08/16 05:39 Lab Results: I have reviewed the past 24 hour labs
[2016-10-08] MEDS: CALCITRIOL 0.25 MCG CAPSULE PO SCH (17:33)
[2016-10-09] MEDS: methylPREDNISolone SOD SUC 40 MG/1 ML VIAL IV SCH ×3 (02:04→17:56)
[2016-10-09] MEDS: ALBUTEROL/IPRATROPIUM 3 ML NEB RESP TX SCH ×6 (03:14→23:00)
--- NOTE | 2016-10-09 08:17 | Nephrology Progress Note ---
Nephrology - PN: Subj Interval history: Patient denies shortness of breath. Review of systems GI she denies nausea or vomiting, general-the patient's asking about going home Physical exam general the patient's in no acute distress Assessment/plan 1. Right upper lobe lesion-patient status post bronchoscopy with washings, pathology is pending 2. End-stage renal disease-we will continue hemodialysis support 3. Hypertension 4. Diabetes mellitus From a renal standpoint is okay for patient to be discharged home, the patient has stated she is not interested in chemotherapy even should her pathology come back positive for cancer. Exam (PN)-Nephrology - Vital Signs Vital signs: Period Temp Pulse Resp BP Sys/Montero Pulse Ox Last 24 Hr 97.5 F-98.9 F 72-98 14-20 129-163/50-78 94-100 - Lab 10/08/16 05:39 10/08/16 05:39 Most recent lab results Calcium 8.9 MG/DL (8.5-10.1) 10/08/16 05:39 Magnesium 2.4 MG/DL (1.8-2.4) 10/07/16 02:41 Assessment and Plan (1) ESRD (end stage renal disease) on dialysis Status: Acute Assessment and plan: We will continue hemodialysis support Current Visit: Yes (2) Mass of upper lobe of right lung Status: Acute Assessment and plan: Workup per pulmonary medicine, sounds like she will have a bronchoscopy Saturday. Current Visit: Yes (3) Anemia Status: Acute Assessment and plan: Patient's hematocrit around 30% I will start her on EPO Current Visit: Yes (4) Secondary hyperparathyroidism Status: Acute Assessment and plan: We will continue her phosphate binder and Rocaltrol Current Visit: Yes (5) Hypertension Status: Acute Assessment and plan: We will continue her present antihypertensives Current Visit: Yes (6) Diabetes mellitus Status: Acute Assessment and plan: Continue present hypoglycemic regimen Current Visit: Yes (7) Hyperlipidemia Status: Acute Assessment and plan: Continue her statin Current Visit: Yes
[2016-10-09] MEDS: INSULIN LISPRO 100 UNIT/ML SUBCUT SCH ×4 (08:31→21:05)
[2016-10-09] MEDS: ATORVASTATIN 40 MG TABLET PO SCH (08:32)
[2016-10-09] MEDS: LOSARTAN 25 MG TABLET PO SCH (08:32)
[2016-10-09] MEDS: CALCIUM ACETATE 667 MG CAPSULE PO SCH ×3 (08:32→17:42)
[2016-10-09] MEDS: PANTOPRAZOLE 40 MG TABLET PO SCH (08:32)
[2016-10-09] MEDS: CARVEDILOL 12.5 MG TABLET PO SCH ×2 (08:32→20:41)
--- NOTE | 2016-10-09 08:38 | Pulmonology Progress Note ---
Pulmonary - PN: Subj Interval history: This 70-year-old lady has a mass on her right long and we plan to do bronchoscopy in the morning. She is feeling a little better today. She did have some bronchospasm yesterday which is improved. 10/08/2016 patient had no new complaints overnight. She was evaluated and examined prior to bronchoscopy. Has a right upper lobe lung mass and signs and symptoms of pneumonia. 10/09/2016 patient is feeling a little better today. She has not coughed up any more blood. Pathology pending from the bronchoscopy. Needs further antibiotics for pneumonia. Would like for oncology to address findings with patient once pathology is out, if it does show bronchogenic carcinoma as I expect it to. Patient may decline treatment, but she needs to know all her options. Exam (Progress Note) - Constitutional Vitals: Period Temp Pulse Resp BP Sys/Montero Pulse Ox Last 24 Hr 97.5 F-98.9 F 72-98 14-20 129-143/50-70 94-100 Exam: Patient's alert vital signs normal. Right pupil react to light. Left pupil opaque. Throat is clear. Neck supple no bruits. Chest reveals some mild expiratory rhonchi. Heart normal rate and rhythm no murmurs. Abdomen soft no masses. Extremities no clubbing cyanosis edema. Calves nontender. Little change from yesterday. Results - Labs CBC & BMP: 10/08/16 05:39 10/08/16 05:39 Lab Results: I have reviewed the past 24 hour labs - Diagnostic Findings Procedure: Chest x-ray: image reviewed by me (Post bronchoscopy chest x-ray is unchanged from before. Large right perihilar mass.) Assessment and Plan (1) Mass of upper lobe of right lung Status: Acute Assessment and plan: Radiographically this appears to be a bronchogenic carcinoma. Especially in view of her long history of smoking up until recently. This was discussed with the patient and her family. We will plan bronchoscopy with biopsies on Saturday. Will need to coordinate with her dialysis. 10/07/2016 plan bronchoscopy with biopsies of anterior segment right upper lobe in the morning. 10/08/2016 patient had bronchoscopy this morning with visible endobronchial tumor noted in the anterior segment right upper lobe. Also had a good bit of retained secretions and purulent appearing material. I think she has both lung cancer and pneumonia. 10/09/2016 certainly has the appearance of a bronchogenic carcinoma based on endobronchial findings. Await biopsy report. She bled rather easily from relatively small biopsies. Current Visit: Yes (2) Pneumonia Status: Acute Assessment and plan: May well have some pneumonia. Agree with antibiotics. Believe most of what we see on x-ray is mass. 10/07/2016 continuing with empiric antibiotics. 10/08/2016 continuing with empiric antibiotics. Culture should be back in a couple of days from bronchoscopy 10/09/2016 needs further antibiotics. Current Visit: Yes (3) ESRD (end stage renal disease) on dialysis Status: Acute Assessment and plan: Continuing with dialysis. 10/07/2016 presumably will dialyze after bronchoscopy tomorrow 10/08/2016 should be ready for dialysis later today. Current Visit: Yes (4) Hilar mass Status: Acute Assessment and plan: Likely bronchogenic carcinoma. 10/08/2016 right upper lobe anterior segment mass. Also has adenopathy. Likely advanced stage lung cancer. 10/09/2016 again likely bronchogenic carcinoma with metastatic adenopathy. Current Visit: Yes
--- NOTE | 2016-10-09 14:45 | Hospitalist Progress Note ---
Assessment and Plan - Time spent with patient Time spent with patient: Greater than 30 minutes (1) Mass of upper lobe of right lung Status: Acute Assessment and plan: With hilar mass. Await results of pathology. Current Visit: Yes (2) Diabetes mellitus Status: Acute Assessment and plan: Continue current management. Current Visit: Yes (3) ESRD (end stage renal disease) on dialysis Status: Acute Assessment and plan: Nephrology to continue HD. Current Visit: Yes (4) Pneumonia Status: Acute Assessment and plan: Continue antibiotics. Current Visit: Yes Hospitalist: Subjective Interval history: No complaints overnight events. Exam - Constitutional Vitals: Period Temp Pulse Resp BP Sys/Montero Pulse Ox Last 24 Hr 97.3 F-98.9 F 72-103 14-20 127-143/50-70 94-100 General appearance: no acute distress - Head Head exam: Present: normocephalic, atraumatic - Eye Eye exam: Present: EOMI Pupils: Present: DONYA - ENT ENT exam: Present: normal exam - Neck Neck exam: Present: normal inspection - Respiratory Respiratory exam: Present: clear to auscultation bilaterally. Absent: rhonchi, wheezes - Cardiovascular Cardiovascular exam: Present: regular rate and rhythm. Absent: gallop, rubs, systolic murmur - GI/Abdominal GI/Abdominal exam: Present: normal bowel sounds, soft. Absent: distended, firm , guarding, tenderness, rebound - Extremities Exam Extremities exam: Present: normal inspection. Absent: calf tenderness, edema Results - Labs CBC & BMP: 10/08/16 05:39 10/08/16 05:39 Lab Results: I have reviewed the past 24 hour labs
[2016-10-09] MEDS: LEVOFLOXACIN INJ 750 MG in PREMIX 1 EACH IV SCH (17:42)
--- NOTE | 2016-10-09 18:15 | Pathology Report from [facility] ---
[facility] [place] ACCESSION # : [id number] PATIENT NAME : Amara Castro ORDERING DR : CHRISSY HOFFMAN MD CLINICAL HX: Right Lung Mass POST-OP DX: Same SPECIMEN INFO: Washing,Bronchial,RUL - 10 mls bloody, cloudy CLASS: V CLASS COMMENTS: Non small cell carcinoma.CELL BLOCK: Same. CLASS LEGEND: CLASS 0 Material inadequate for diagnosis because of (see comment) CLASS I Absence of atypical or abnormal cells CLASS II Atypical Cytology but no evidence of malignancy CLASS III Cytology suggestive of but not conclusive for malignancy CLASS IV Cytology strongly suggestive of malignancy CLASS V Cytology conclusive for malignancy COLLECTED DATE: 10/08/2016 [facility] REPORT DATE: 10/09/2016 ELECTRONICALLY SIGNED BY: Diogo Perez M.D. 10/09/2016 - 13:46:32 [facility]
--- NOTE | 2016-10-09 18:16 | Pathology Report from [facility] ---
[facility] ACCESSION # : [id number] PATIENT NAME : Amara Castro ORDERING DR : CHRISSY HOFFMAN MD CLINICAL HX: Right Lung Mass POST-OP DX: Same SPECIMEN INFO: Brushing,Bronchial,RUL - 1 brush (Received in [facility]). CLASS: V CLASS COMMENTS: Non small cell carcinoma.CELL BLOCK: No atypical cells seen. CLASS LEGEND: CLASS 0 Material inadequate for diagnosis because of (see comment) CLASS I Absence of atypical or abnormal cells CLASS II Atypical Cytology but no evidence of malignancy CLASS III Cytology suggestive of but not conclusive for malignancy CLASS IV Cytology strongly suggestive of malignancy CLASS V Cytology conclusive for malignancy COLLECTED DATE: 10/08/2016 [facility] REPORT DATE: 10/09/2016 ELECTRONICALLY SIGNED BY: Diogo Perez M.D. 10/09/2016 - 13:46:45 MTDD
--- NOTE | 2016-10-09 18:17 | Pathology Report from [facility] ---
[facility] ACCESSION # : [id number] PATIENT NAME : Leonidas Castro ORDERING DR : CHRISSY HOFFMAN MD CLINICAL HX: RT lung mass POST-OP DX: Same SPECIMEN INFO: RUL Bronchial BXS GROSS DESCRIPTION: Received in formalin labeled LEONIDAS CASTRO & RUL are tiny fragments of red marie mucosal tissue measuring collectively 0.2 x 0.2 cm submitted in one cassette. DIAGNOSIS FOR LEONIDAS CASTRO: LUNG, RIGHT UPPER LOBE, ENDOBRONCHIAL BIOPSY: Squamous cell carcinoma, moderately differentiated.NOTE: Scant tumor present with immunophenotype CK7-/ CK20-/ TTF-1-/ p63+. COLLECTED DATE: 10/08/2016 [facility] REPORT DATE: 10/09/2016 ELECTRONICALLY SIGNED BY: Diogo Perez M.D. 10/09/2016 - 13:45:24 MTDD
--- NOTE | 2016-10-09 18:21 | Event Note ---
Pathology has come back squamous cell lung cancer. Due to the mediastinal involvement and proximal nature of the tumor, not a surgical candidate. Discussed findings with patient. Oncology consult requested. Patient may elect not to have treatment however I advised her to at least hear what the options were.
[2016-10-10] MEDS: methylPREDNISolone SOD SUC 40 MG/1 ML VIAL IV SCH ×3 (01:44→17:39)
[2016-10-10] MEDS: ALBUTEROL/IPRATROPIUM 3 ML NEB RESP TX SCH ×6 (03:00→23:53)
[2016-10-10] MEDS: INSULIN LISPRO 100 UNIT/ML SUBCUT SCH ×4 (08:02→20:41)
[2016-10-10] MEDS: CALCIUM ACETATE 667 MG CAPSULE PO SCH ×3 (08:03→17:39)
[2016-10-10] MEDS: ATORVASTATIN 40 MG TABLET PO SCH (08:03)
[2016-10-10] MEDS: PANTOPRAZOLE 40 MG TABLET PO SCH (08:04)
[2016-10-10] MEDS ORDERED: POLYETHYLENE GLYCOL POWDER 17 GM PACK PO PRN (08:14)
[2016-10-10] MEDS ORDERED: MAGNESIUM HYDROXIDE SUSP 30 ML UDCUP PO PRN (08:15)
--- NOTE | 2016-10-10 09:29 | Pulmonology Progress Note ---
Pulmonary - PN: Subj Interval history: This 70-year-old lady has a mass on her right long and we plan to do bronchoscopy in the morning. She is feeling a little better today. She did have some bronchospasm yesterday which is improved. 10/08/2016 patient had no new complaints overnight. She was evaluated and examined prior to bronchoscopy. Has a right upper lobe lung mass and signs and symptoms of pneumonia. 10/09/2016 patient is feeling a little better today. She has not coughed up any more blood. Pathology pending from the bronchoscopy. Needs further antibiotics for pneumonia. Would like for oncology to address findings with patient once pathology is out, if it does show bronchogenic carcinoma as I expect it to. Patient may decline treatment, but she needs to know all her options. 10/10/2016 biopsy shows squamous cell carcinoma. Oncology to see today. Exam (Progress Note) - Constitutional Vitals: Period Temp Pulse Resp BP Sys/Montero Pulse Ox Last 24 Hr 97.3 F-98.2 F 88-99 18-20 120-140/62-90 96-100 Exam: Patient's alert vital signs normal. Right pupil react to light. Left pupil opaque. Throat is clear. Neck supple no bruits. Chest reveals some mild expiratory rhonchi. Heart normal rate and rhythm no murmurs. Abdomen soft no masses. Extremities no clubbing cyanosis edema. Calves nontender. Little change from yesterday. Results - Labs CBC & BMP: 10/08/16 05:39 10/08/16 05:39 Lab Results: I have reviewed the past 24 hour labs Assessment and Plan (1) Mass of upper lobe of right lung Status: Acute Assessment and plan: Radiographically this appears to be a bronchogenic carcinoma. Especially in view of her long history of smoking up until recently. This was discussed with the patient and her family. We will plan bronchoscopy with biopsies on Saturday. Will need to coordinate with her dialysis. 10/07/2016 plan bronchoscopy with biopsies of anterior segment right upper lobe in the morning. 10/08/2016 patient had bronchoscopy this morning with visible endobronchial tumor noted in the anterior segment right upper lobe. Also had a good bit of retained secretions and purulent appearing material. I think she has both lung cancer and pneumonia. 10/09/2016 certainly has the appearance of a bronchogenic carcinoma based on endobronchial findings. Await biopsy report. She bled rather easily from relatively small biopsies. 10/10/2016 squamous cell carcinoma. Oncology consulted. Patient hesitant to have any treatment. Current Visit: Yes (2) Pneumonia Status: Acute Assessment and plan: May well have some pneumonia. Agree with antibiotics. Believe most of what we see on x-ray is mass. 10/07/2016 continuing with empiric antibiotics. 10/08/2016 continuing with empiric antibiotics. Culture should be back in a couple of days from bronchoscopy 10/09/2016 needs further antibiotics. 10/10/2016 probably could go to oral antibiotics for a couple more days. Nothing grew on cultures. Current Visit: Yes (3) ESRD (end stage renal disease) on dialysis Status: Chronic Assessment and plan: Continuing with dialysis. 10/07/2016 presumably will dialyze after bronchoscopy tomorrow 10/08/2016 should be ready for dialysis later today. 10/10/2016 for dialysis. Current Visit: Yes (4) Hilar mass Status: Acute Assessment and plan: Likely bronchogenic carcinoma. 10/08/2016 right upper lobe anterior segment mass. Also has adenopathy. Likely advanced stage lung cancer. 10/09/2016 again likely bronchogenic carcinoma with metastatic adenopathy. Current Visit: Yes
[2016-10-10] MEDS: CARVEDILOL 12.5 MG TABLET PO SCH ×2 (13:49→20:41)
[2016-10-10] MEDS: LOSARTAN 25 MG TABLET PO SCH (13:50)
--- NOTE | 2016-10-10 13:58 | Nephrology Progress Note ---
Nephrology - PN: Subj Interval history: Patient denies shortness of breath. Review of systems GI she denies nausea vomiting Physical exam general the patient is in no acute distress, she is in fairly good spirits despite the recent news of her lung cancer Assessment/plan 1. End-stage renal disease-we will continue hemodialysis 2. Squamous cell lung cancer-patient's to be seen by oncology 3. Hypertension this control 4. Diabetes mellitus this is controlled Exam (PN)-Nephrology - Vital Signs Vital signs: Period Temp Pulse Resp BP Sys/Montero Pulse Ox Last 24 Hr 97.3 F-98.2 F 85-99 18-20 120-158/66-90 96-100 - Lab 10/08/16 05:39 10/08/16 05:39 Most recent lab results Calcium 8.9 MG/DL (8.5-10.1) 10/08/16 05:39 Magnesium 2.4 MG/DL (1.8-2.4) 10/07/16 02:41 Assessment and Plan (1) ESRD (end stage renal disease) on dialysis Status: Chronic Assessment and plan: We will continue hemodialysis support Current Visit: Yes (2) Mass of upper lobe of right lung Status: Acute Assessment and plan: Workup per pulmonary medicine, sounds like she will have a bronchoscopy Saturday. Current Visit: Yes (3) Anemia Status: Acute Assessment and plan: Patient's hematocrit around 30% I will start her on EPO Current Visit: Yes (4) Secondary hyperparathyroidism Status: Acute Assessment and plan: We will continue her phosphate binder and Rocaltrol Current Visit: Yes (5) Hypertension Status: Acute Assessment and plan: We will continue her present antihypertensives Current Visit: Yes (6) Diabetes mellitus Status: Acute Assessment and plan: Continue present hypoglycemic regimen Current Visit: Yes (7) Hyperlipidemia Status: Acute Assessment and plan: Continue her statin Current Visit: Yes
--- NOTE | 2016-10-10 14:10 | Hospitalist Progress Note ---
Assessment and Plan - Time spent with patient Time spent with patient: Greater than 30 minutes (1) Mass of upper lobe of right lung Status: Acute Assessment and plan: Squamous cell carcinoma awaiting oncology's evaluation. If cleared by oncology patient can be discharged today. Current Visit: Yes (2) Diabetes mellitus Status: Acute Assessment and plan: Continue current management. Current Visit: Yes (3) ESRD (end stage renal disease) on dialysis Status: Chronic Assessment and plan: Nephrology to continue HD. Current Visit: Yes (4) Pneumonia Status: Acute Assessment and plan: Continue antibiotics. Current Visit: Yes Hospitalist: Subjective Interval history: No complaints overnight events. Exam - Constitutional Vitals: Period Temp Pulse Resp BP Sys/Montero Pulse Ox Last 24 Hr 97.3 F-98.2 F 85-99 18-20 109-158/53-90 96-100 General appearance: no acute distress - Head Head exam: Present: normocephalic, atraumatic - Eye Eye exam: Present: EOMI Pupils: Present: DONYA - ENT ENT exam: Present: normal exam - Neck Neck exam: Present: normal inspection - Respiratory Respiratory exam: Present: clear to auscultation bilaterally. Absent: rhonchi, wheezes - Cardiovascular Cardiovascular exam: Present: regular rate and rhythm. Absent: gallop, rubs, systolic murmur - GI/Abdominal GI/Abdominal exam: Present: normal bowel sounds, soft. Absent: distended, firm , guarding, tenderness, rebound - Extremities Exam Extremities exam: Present: normal inspection. Absent: calf tenderness, edema Results - Labs CBC & BMP: 10/08/16 05:39 10/08/16 05:39 Lab Results: I have reviewed the past 24 hour labs
[2016-10-10] MEDS: CALCITRIOL 0.25 MCG CAPSULE PO SCH (17:39)
[2016-10-11] MEDS: methylPREDNISolone SOD SUC 40 MG/1 ML VIAL IV SCH ×2 (03:20→09:37)
[2016-10-11] MEDS: ALBUTEROL/IPRATROPIUM 3 ML NEB RESP TX SCH ×3 (04:00→10:51)
--- NOTE | 2016-10-11 08:29 | Oncology History&Physical ---
Assessment and Plan (1) Lung cancer Status: Acute Assessment and plan: Please arrange for outpatient PET scan to be done at next available date. Schedule appointment to see me the same week his PET scan on that Saturday or . She can be discharged home from my standpoint. Current Visit: Yes (2) ESRD (end stage renal disease) on dialysis Status: Chronic Current Visit: Yes (3) Diabetes mellitus Status: Acute Current Visit: Yes History of Present Illness History of present illness: Ms. Castro is a 70 year old female with end-stage renal disease on hemodialysis who was found to have a large right hilar mass with lymphadenopathy and a left lung nodule on workup during this hospitalization. Bronchoscopy was done and biopsy of the right hilar mass return back as squamous cell carcinoma. She has a distant history of cervical cancer but I do not think that is relevant to her current situation and we are looking at a lung primary. She is only 70 but she appears to be an fairly poor health given her end-stage renal disease. She also has a [id number] that just went through chemotherapy and radiation treatment and did not do well. She and I had a lengthy discussion about the possibility that she has stage IV lung cancer given the left lung nodule but a PET scan will be better at assessing this for us. She can be discharged home from an oncology standpoint. I have asked the nursing services to arrange for an outpatient PET scan within the next few weeks and see me back in clinic the same week of her PET scan. I think the next available PET scan date is November 05. She is aware that if this is stage IV lung cancer, her prognosis is very poor. She is uncertain if she will do treatment if that is the case. Home Medications Medication Instructions Recorded Confirmed Type Calcitriol [Rocaltrol] 0.25 mcg PO MOWEFR 01/14/16 10/05/16 History Calcium Acetate 667 mg PO TID W/MEALS 01/14/16 10/05/16 History Carvedilol [Coreg] 12.5 mg PO BID 01/14/16 10/05/16 History Insulin NPH Hum/Reg Insulin Hm 10 unit SUBCUT BID W/MEALS 01/14/16 10/05/16 History [NovoLIN 70/30] Losartan Potassium 25 mg PO QAM 01/14/16 10/05/16 History traMADol TAB [Ultram] 100 mg PO Q6H PRN 01/14/16 10/05/16 History Atorvastatin [Lipitor] 40 mg PO QAM 10/05/16 10/05/16 History Allergies Allergy/AdvReac Type Severity Reaction Status Date / Time acetaminophen [From Tylenol] Allergy Verified 01/12/15 06:25 gabapentin [From Neurontin] Allergy Verified 01/12/15 06:25 IVP Dye Allergy Uncoded 01/12/15 06:25 Medical,Surgical,& Family Hx - Medical History Cardio: History of: Hypertension Psychological: No history of: Anxiety Disorders, ADHD, Behavior Problems, Bipolar Disorder, Depression, Previous Suicide Attempt, Psychiatric/Substance Abuse Tx, Schizophrenia, Violent Behavior, Psychiatric Problems Neurology: No history of: Seizures Endocrine: History of: Diabetes Mellitus (IDDM) Renal: History of: Dialysis (MWF), Renal Failure - Surgical History Reproductive Surgeries: Surgical HX of;: Hysterectomy Orthopedic Surgeries: Surgical HX of;: Orthopedic Surgery (left foot 5th toe amputation, left foot surgery) - Family History Family History: Reports;: Family Hypertension - Social History Smoking Status: Former smoker Frequency of Alcohol Use: None Type of Drug Use: None ROS unobtainable: due to mental status Exam - Constitutional Vitals: Period Temp Pulse Resp BP Sys/Montero Pulse Ox Last 24 Hr 97.4 F-98.2 F 82-105 18-20 108-149/53-71 95-100 General appearance: normal weight, no acute distress - Head Head Exam: Present: normocephalic, atraumatic - Eye Eye Exam: Absent: scleral icterus - ENT ENT exam: Present: normal exam, normal oropharynx - Neck Neck exam: Absent: lymphadenopathy, thyromegaly - Respiratory Respiratory exam: Present: CTAB. Absent: wheezes - Cardiovascular Cardiovascular exam: Present: RRR. Absent: JVD, systolic murmur - GI/Abdominal GI/Abdominal exam: Present: soft. Absent: ascites, distended, firm, mass - Neurological Exam Neurological exam: Present: alert, oriented X3 - Psychiatric Psychiatric exam: Present: normal affect, normal mood - Skin Skin exam: Present: warm, dry Results - Labs CBC & BMP: 10/08/16 05:39 10/08/16 05:39 Lab Results: I have reviewed the past 24 hour labs - Diagnostic Findings Procedure: CT - chest: report reviewed by me
--- NOTE | 2016-10-11 08:58 | Pulmonology Progress Note ---
Pulmonary - PN: Subj Interval history: This 70-year-old lady has a mass on her right long and we plan to do bronchoscopy in the morning. She is feeling a little better today. She did have some bronchospasm yesterday which is improved. 10/08/2016 patient had no new complaints overnight. She was evaluated and examined prior to bronchoscopy. Has a right upper lobe lung mass and signs and symptoms of pneumonia. 10/09/2016 patient is feeling a little better today. She has not coughed up any more blood. Pathology pending from the bronchoscopy. Needs further antibiotics for pneumonia. Would like for oncology to address findings with patient once pathology is out, if it does show bronchogenic carcinoma as I expect it to. Patient may decline treatment, but she needs to know all her options. 10/10/2016 biopsy shows squamous cell carcinoma. Oncology to see today. 10/11/2016 patient has been seen by oncology. Plans are for a PET scan and follow-up consultation and Dr. Oliveros's office. I will sign off. Please call if needed further. Exam (Progress Note) - Constitutional Vitals: Period Temp Pulse Resp BP Sys/Montero Pulse Ox Last 24 Hr 97.4 F-98.2 F 82-105 18-20 108-149/53-71 95-100 Exam: Patient's alert vital signs normal. Right pupil react to light. Left pupil opaque. Throat is clear. Neck supple no bruits. Chest reveals some mild expiratory rhonchi. Heart normal rate and rhythm no murmurs. Abdomen soft no masses. Extremities no clubbing cyanosis edema. Calves nontender. Little change from yesterday. Results - Labs CBC & BMP: 10/08/16 05:39 10/08/16 05:39 Lab Results: I have reviewed the past 24 hour labs Assessment and Plan (1) Mass of upper lobe of right lung Status: Acute Assessment and plan: Radiographically this appears to be a bronchogenic carcinoma. Especially in view of her long history of smoking up until recently. This was discussed with the patient and her family. We will plan bronchoscopy with biopsies on Saturday. Will need to coordinate with her dialysis. 10/07/2016 plan bronchoscopy with biopsies of anterior segment right upper lobe in the morning. 10/08/2016 patient had bronchoscopy this morning with visible endobronchial tumor noted in the anterior segment right upper lobe. Also had a good bit of retained secretions and purulent appearing material. I think she has both lung cancer and pneumonia. 10/09/2016 certainly has the appearance of a bronchogenic carcinoma based on endobronchial findings. Await biopsy report. She bled rather easily from relatively small biopsies. 10/10/2016 squamous cell carcinoma. Oncology consulted. Patient hesitant to have any treatment. 10/11/2016 stage IV metastatic cell lung cancer. Oncology addressing. Current Visit: Yes (2) Pneumonia Status: Acute Assessment and plan: May well have some pneumonia. Agree with antibiotics. Believe most of what we see on x-ray is mass. 10/07/2016 continuing with empiric antibiotics. 10/08/2016 continuing with empiric antibiotics. Culture should be back in a couple of days from bronchoscopy 10/09/2016 needs further antibiotics. 10/10/2016 probably could go to oral antibiotics for a couple more days. Nothing grew on cultures. 10/11/2016 probably could stop antibiotics at this point Current Visit: Yes (3) ESRD (end stage renal disease) on dialysis Status: Chronic Assessment and plan: Continuing with dialysis. 10/07/2016 presumably will dialyze after bronchoscopy tomorrow 10/08/2016 should be ready for dialysis later today. 10/10/2016 for dialysis. 10/11/2016 defer to nephrology. Current Visit: Yes (4) Hilar mass Status: Acute Assessment and plan: Likely bronchogenic carcinoma. 10/08/2016 right upper lobe anterior segment mass. Also has adenopathy. Likely advanced stage lung cancer. 10/09/2016 again likely bronchogenic carcinoma with metastatic adenopathy. Current Visit: Yes
--- NOTE | 2016-10-11 09:05 | Discharge Summary ---
Hospital Course - Hospital Course Hospital Course: Ms. Castro was admitted for evaluation of shortness of breath and productive cough. Patient had a CT performed in the ER which revealed a right hilar mass with multiple pulmonary nodules and pathologic lymphadenopathy consistent with malignancy. Furthermore, embolic disease was seen in the descending pulmonary artery on the right. She was initiated on IV antibiotics for potential pneumonia. She was seen in consultation by Pulmonary who performed a bronchoscopy with biopsy of the visualized lesion. This returned SCC. She was seen by Oncology who will follow up with the patient on an outpatient basis for a PET scan. She was initiated on Eliquis for the pulmonary embolus. By discharge she had met maximum benefit of hospitalization I spent 38 minutes coordinating this discharge. - Time spent with patient Time with patient DS: Greater than 30 minutes Diagnosis - Discharge Diagnosis (1) Mass of upper lobe of right lung Status: Acute (2) Diabetes mellitus Status: Acute (3) ESRD (end stage renal disease) on dialysis Status: Chronic (4) Pneumonia Status: Acute Specialty Discharge - Follow Up or Referrals Follow up with: Modesto Oliveros MD [Physician] - 11/05/16 10:15 am Discharge Plan - Discharge Data Disposition: Disch To Home/Self Care Condition at Discharge: Stable Discharge Diet: advance to your usual diet Activity: resume usual activities as tolerated - Discharge Medications New Levofloxacin Tab [Levaquin Tab] 250 mg PO DAILY #3 tablet Apixaban [Eliquis] 5 mg PO BID #60 tablet Continue Calcitriol [Rocaltrol] 0.25 mcg PO MOWEFR Losartan Potassium 25 mg PO QAM Insulin NPH Hum/Reg Insulin Hm [NovoLIN 70/30] 10 unit SUBCUT BID W/MEALS Carvedilol [Coreg] 12.5 mg PO BID traMADol TAB [Ultram] 100 mg PO Q6H PRN PRN Reason: Pain Calcium Acetate 667 mg PO TID W/MEALS Atorvastatin [Lipitor] 40 mg PO QAM - Follow Up or Referral Follow Up: Modesto Oliveros MD [Physician] - 11/05/16 10:15 am Herbie Park MD [Physician] - 2 Weeks - Forms/Instructions Instructions: Levofloxacin (By mouth), Viral Pneumonia (DC), Lung Cancer (DC) Exam - Constitutional Vitals: Period Temp Pulse Resp BP Sys/Montero Pulse Ox Last 24 Hr 97.4 F-98.2 F 82-105 18-20 108-149/53-71 95-100 General appearance: normal weight, no acute distress - Head Head exam: Present: normal inspection, normocephalic, atraumatic - Eye Eye exam: Present: EOMI Pupils: Present: DONYA - ENT ENT exam: Present: normal exam - Neck Neck exam: Present: normal inspection - Respiratory Respiratory exam: Present: clear to auscultation bilaterally. Absent: accessory muscle use, prolonged expiratory phase, wheezes - Cardiovascular Cardiovascular exam: Present: regular rate and rhythm. Absent: bradycardia, irregular rhythm, systolic murmur - GI/Abdominal GI/Abdominal exam: Present: normal bowel sounds. Absent: ascites, distended, hypoactive bowel sounds, tenderness - Extremities Exam Extremities exam: Present: normal inspection Discharge Results Procedures and tests throughout hospitalization: Pending Orders 10/08/16 AFB Culture/Smears Routine Fungal Culture w/ Prep Routine 10/08/16 08:05 Cytology Request Routine Labs on day of discharge: Labs from last 24 hours 10/10/16 10/10/16 10/10/16 20:32 16:59 11:54 POC Glucose 374 H 299 H 205 H DS: Provider Date of admission: 10/05/16 13:33 Primary care physician: Zafar Machado MD Attending physician on admission: Natalee Garcia MD Consults: 10/05/16 15:19 Consult to Physician [CONS] Routine Comment: Consulting Provider: George Bolaños Date Notified: 10/05/16 Time Notified: 15:28 Consult Notification Comment: left message 1522 garcia back left message on Renita @3:28 Consult to Physician [CONS] Routine Comment: Consulting Provider: Herbie Park Person Notified: Dr Park Date Notified: 10/05/16 Time Notified: 15:24 10/09/16 18:19 Consult to Physician [CONS] Routine Comment: Squamous cell lung cancer unresectable Consulting Provider: Modesto Oliveros Consult to Specialist Group: Oncology When should Consulting Provider be notified: In am Person Notified: kendra Date Notified: 10/10/16 Time Notified: 14:19 Discharging clinician: Natalee Garcia MD Expected date of discharge: 10/11/16
[2016-10-11] MEDS: INSULIN LISPRO 100 UNIT/ML SUBCUT SCH ×2 (09:36→11:51)
[2016-10-11] MEDS: ATORVASTATIN 40 MG TABLET PO SCH (09:37)
[2016-10-11] MEDS: LOSARTAN 25 MG TABLET PO SCH (09:37)
[2016-10-11] MEDS: CALCIUM ACETATE 667 MG CAPSULE PO SCH ×2 (09:37→11:51)
[2016-10-11] MEDS: CARVEDILOL 12.5 MG TABLET PO SCH (09:37)
[2016-10-11] MEDS: PANTOPRAZOLE 40 MG TABLET PO SCH (09:37)
[2016-10-11 11:44] VITALS: BP 133/74
== END 2016-10-11 14:30 | disposition home or self-care (01) | DRG 180 ==
LOC: N.ED 11:05 → N.EDINP 13:33 → N.5E 15:18
PROVIDERS: ADMIT Internal Medicine; ATTEND Internal Medicine
PROC: BRONCHB (2016-10-08 07:35)

== ENCOUNTER 2016-10-26 11:41 | Inpatient (IN) ==
[2016-10-26] MEDS ORDERED: methylPREDNISolone SOD SUC 125 MG/2 ML VIAL IV STA (12:07)
[2016-10-26] MEDS ORDERED: ALBUTEROL/IPRATROPIUM 3 ML NEB RESP TX STA (12:07)
--- NOTE | 2016-10-26 12:11 | EKG Report ---
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
--- NOTE | 2016-10-26 12:12 | Emergency Department Note ---
Arrival - Arrival Chief Complaint: Shortness of Breath Stated Complaint: SOB,ca pt (lung cancer) ED Nursing Triage Note: SOB FOR COUPLE OF WEEKS, WORSE TODAY, HX LUNG CA (NEWLY DIAGNOSED) AND ESRD, MWF DIALYSIS, HAS NOT GONE TODAY Mode of Arrival: Wheelchair Limitations: No Limitations Source: Patient Time Seen by Provider: 10/26/16 12:07 - History of Present Illness HPI Narrative: This 70-year-old white female presents with 2 weeks of insidious increase in shortness of breath not associated with chest pain, nausea, vomiting, or diaphoresis. Patient does have a history of recently diagnosed lung cancer for which she is going through staging currently and has not initiated treatment. She is likewise a dialysis patient for the last several months, dialyzing Saturday and Saturday. She has not gone to dialysis yet today. Of note, CT of October 05 revealed right hilar mass with multiple pulmonary nodules and adenopathy. Also mentioned on the same study with evidence of pulmonary embolic disease in the descending pulmonary artery on the right. Currently she appears in no acute medical distress. Onset (ago): week(s) (Patient presents 2 weeks post onset of symptoms) Allergies/Adverse Reactions: Allergies Allergy/AdvReac Type Severity Reaction Status Date / Time acetaminophen [From Tylenol] Allergy RASH Verified 10/26/16 11:48 gabapentin [From Neurontin] Allergy RASH Verified 10/26/16 11:48 IVP Dye Allergy RASH Uncoded 10/26/16 11:48 Home Medications: Home Medications Medication Instructions Recorded Confirmed Type Calcitriol [Rocaltrol] 0.25 mcg PO MOWEFR 01/14/16 10/05/16 History Calcium Acetate 667 mg PO TID W/MEALS 01/14/16 10/05/16 History Carvedilol [Coreg] 12.5 mg PO BID 01/14/16 10/05/16 History Insulin NPH Hum/Reg Insulin Hm 10 unit SUBCUT BID W/MEALS 01/14/16 10/05/16 History [NovoLIN 70/30] Losartan Potassium 25 mg PO QAM 01/14/16 10/05/16 History traMADol TAB [Ultram] 100 mg PO Q6H PRN 01/14/16 10/05/16 History Atorvastatin [Lipitor] 40 mg PO QAM 10/05/16 10/05/16 History Apixaban [Eliquis] 5 mg PO BID #60 tablet 10/11/16 Rx Review of System - Review of System 12 point system: reviewed and no additional remarkable complaints except as stated - Review of System Constitutional: Present: as per HPI Respiratory: Present: as per HPI Cardiovascular: Present: as per HPI Gastrointestinal: Present: as per HPI Genitourinary female: Present: as per HPI Medical,Surgical,& Family Hx - Medical History Cardio: History of: Hypertension Psychological: No history of: Anxiety Disorders, ADHD, Behavior Problems, Bipolar Disorder, Depression, Previous Suicide Attempt, Psychiatric/Substance Abuse Tx, Schizophrenia, Violent Behavior, Psychiatric Problems Neurology: No history of: Seizures Endocrine: History of: Diabetes Mellitus (IDDM) Respiratory: History of: Lung Cancer Renal: History of: Dialysis (MWF), Renal Failure - Surgical History Reproductive Surgeries: Surgical HX of;: Hysterectomy Orthopedic Surgeries: Surgical HX of;: Orthopedic Surgery (left foot 5th toe amputation, left foot surgery) - Family History Family History: Reports;: Family Hypertension - Social History Smoking Status: Former smoker Exam Physical Examination: GENERAL: Well developed, well nourished elderly black female in no acute distress. HEENT: Normocephalic. No trauma. Moist mucous membranes. EOMI. left pupil opacified. ENT NML NECK: Supple. No adenopathy. CARDIAC: Regular. No murmurs. Heart rate 98 CHEST: Clear to auscultation. No respiratory distress. O2 sat 93% ABDOMEN: Soft. Nontender. Active bowel sounds. EXTREMITIES: No trauma. Normal ROM. 2+ pedal edema. SKIN: No diaphoresis. No rash. NEURO: Alert. Neuro intact. No focal deficits. Vital Signs: Vital Signs Temperature 98.3 F 10/26/16 12:24 Pulse Rate 83 10/26/16 13:25 Respiratory Rate 18 10/26/16 13:25 Blood Pressure 132/62 10/26/16 12:24 O2 Sat by Pulse Oximetry 100 10/26/16 13:25 Course - Reevaluation(s) Reevaluation #1: Discussed with patient the need for hospitalization to address multiple problems. - Consultations Consultation #1: Discussed with Dr. Zamarripa who has not yet seen the patient and deferred to the hospitalist but stated he would see her in consultation. Consultation #2: Discussed with the hospitalist who will admit for further evaluation and treatment. Results - Labs CBC & BMP: 10/26/16 12:11 10/26/16 12:11 Labs: I have reviewed the laboratory and noted the elevated white blood count and d- dimer. Likewise expected aberration and lab secondary to renal failure. - Impressions EKG: Sinus rhythm at 92 with normal NC interval and QRS duration. Left atrial enlargement. Poor R-wave progression anteriorly. Nonspecific ST changes. No acute injury pattern noted. - Diagnostic Findings Procedure: Chest x-ray: image reviewed by me, report reviewed by me (Slight cardiomegaly with right pleural effusion with again noted right hilar mediastinal mass with progression of interstitial changes consistent with postobstructive pneumonia) Disposition Clinical Impression: Right hilar/mediastinal mass, Postobstructive pneumonia, Dialysis dependent renal failure, Congestive failure, PTE versus tumor thrombus RLL Case discussed with: patient, patient's family Disposition: Still a Patient Condition: Guarded Time of Disposition: 13:50
[2016-10-26 12:18] LABS: Basophils % 0.1 % (0.0-0.8); Eosinophils # 0.1 10*3/uL (0.0-0.87); Eosinophils % 0.5 % (0.00-10.9); Hematocrit 30.6 VOL% (35.7-47.0); Hemoglobin 9.8 GM/DL (12.0-16.0); Immature Granulocytes % 1.2 %; Immature Granulocytes Absolute 0.18 #; Lymphocytes # 0.9 10*3/uL (1.4-4.0); Lymphocytes % 6.1 % (21.3-54.2); Mean Corpuscular Hemoglobin 29 PG (27-34); Mean Corpuscular Volume 89.2 FL (87-102); Mean Platelet Volume 10.1 FL (9.6-12.0); Monocytes # 1.3 10*3/uL (0.11-0.8); Monocytes % 8.6 % (1.7-12.7); Neutrophils # 12.2 10*3/uL (1.4-7.4); Neutrophils % 83.5 % (38.7-73.9); Platelet Count 316 T/CUMM (130-400); Red Blood Count 3.43 MC/CUMM (3.8-5.5); Red Cell Distribution Width 16.2 % (9.3-17.3); White Blood Count 14.6 T/CUMM (4-12)
[2016-10-26] MEDS ORDERED: LEVOFLOXACIN INJ 750 MG in PREMIX 1 EACH IV STA (12:19)
[2016-10-26 12:28] LABS: INR 1.3; PT Patient Result 13.4 SECS
[2016-10-26] MEDS ORDERED: LEVOFLOXACIN INJ 150 ML IV ONE (12:34)
[2016-10-26] MEDS ORDERED: methylPREDNISolone SOD SUC 125 MG/2 ML VIAL ONE (12:34)
[2016-10-26 12:35] LABS: Partial Thromboplastin Time 43.1 SECS (0-40)
--- NOTE | 2016-10-26 12:45 | XRay Report ---
Portable chest Date: 10/26/2016 Clinical history: Shortness of breath Comparison: 10/08/2016 Technique: Portable AP sitting chest Findings: The heart is slightly larger in size with calcification in the aortic knob. Significant progressive parenchymal findings in the right lung with at least small right pleural effusion. Additional progressive parenchymal findings at the left lung base. Persistent mass effect in the mediastinum and right hilar location. No acute osseous findings. Impression: Significant progressive parenchymal findings in the right lung which may be related to postobstructive pneumonia with atelectasis in patient with known right hilar mass and small right pleural effusion. Additional progressive atelectasis/infiltration at the left lung base. Follow-up chest x-ray recommended. PROCEDURE INTERPRETED AT [facility] DEPARTMENT OF RADIOLOGY Final Report Signed by: Dr. Amara Ward
[2016-10-26 12:56] LABS: Alanine Aminotransferase 11 U/L (13-56); Albumin 1.7 G/DL (3.4-5.0); Alkaline Phosphatase 122 U/L (45-117); Aspartate Amino Transferase 14 U/L (0-37); Blood Urea Nitrogen 37 MG/DL (7-18); Glucose 164 MG/DL (74-106); Osmolality,Calculated 282.1 MOS/KG (273-304); Sodium 135 MMOL/L (136-145); Total Protein 5.2 G/DL (6.4-8.3); Troponin I Only < 0.015 NG/ML (0.00-0.045)
--- NOTE | 2016-10-26 14:31 | Hospitalist History & Physical ---
Assessment and Plan - Time spent with patient Time spent with patient: Greater than 30 minutes (1) Diabetes mellitus Status: Acute Assessment and plan: Admit. A.m. Labs. Start antibiotics and IV fluids; brochodilators; Consult Dr Oliveros (oncology); consult renal; followup CXR in a.m.; continue BP medications. Current Visit: No (2) Hypertension Status: Acute Current Visit: No (3) Mass of upper lobe of right lung Status: Acute Current Visit: No (4) Pneumonia Status: Acute Current Visit: No (5) ESRD (end stage renal disease) on dialysis Status: Chronic Current Visit: No History of Present Illness Chief complaint: Shortness of breath History of present illness: Ms. Castro is a very pleasant 70 year old black female presented to [facility] with complaint of shortness of breath. Shortness of breath started this morning gradually getting worse throughout the morning; becoming much worse by 11:00 AM. Medical history: hypertension, diabetes, lung cancer with diagnosis 2 weeks ago, dialysis (Saturday) for renal failure, TIA , left retinal detachment. Surgical history: Left retinal repair, left 5th toe amputation, hysterectomy. Family history: Mother Diabetes and HTn; Father and 2 sisters hypertension. Quit smoking 8 months ago, No alcohol Renal MD: Dr Machado PCP: LYNDSAY Lan in [facility] Medications Medication Instructions Recorded Confirmed Type Calcitriol [Rocaltrol] 0.25 mcg PO MOWEFR 01/14/16 10/26/16 History Carvedilol [Coreg] 12.5 mg PO BID 01/14/16 10/26/16 History Insulin NPH Hum/Reg Insulin Hm 10 unit SUBCUT BID W/MEALS 01/14/16 10/26/16 History [NovoLIN 70/30] Losartan Potassium 25 mg PO QAM 01/14/16 10/26/16 History traMADol TAB [Ultram] 100 mg PO Q6H PRN 01/14/16 10/26/16 History Atorvastatin [Lipitor] 40 mg PO QAM 10/05/16 10/26/16 History Apixaban [Eliquis] 5 mg PO BID #60 tablet 10/11/16 10/26/16 Rx Calcium Acetate [Phoslo] 667 mg PO TID W/MEALS 10/26/16 10/26/16 History Ondansetron HCl 8 mg PO Q8H PRN 10/26/16 10/26/16 History Allergies Allergy/AdvReac Type Severity Reaction Status Date / Time acetaminophen [From Tylenol] Allergy RASH Verified 10/26/16 11:48 gabapentin [From Neurontin] Allergy RASH Verified 10/26/16 11:48 IVP Dye Allergy RASH Uncoded 10/26/16 11:48 Medical,Surgical,& Family Hx - Medical History Cardio: History of: Hypertension Psychological: No history of: Anxiety Disorders, ADHD, Behavior Problems, Bipolar Disorder, Depression, Previous Suicide Attempt, Psychiatric/Substance Abuse Tx, Schizophrenia, Violent Behavior, Psychiatric Problems Neurology: No history of: Seizures Endocrine: History of: Diabetes Mellitus (IDDM) Respiratory: History of: Lung Cancer Renal: History of: Dialysis (MWF), Renal Failure - Surgical History Reproductive Surgeries: Surgical HX of;: Hysterectomy Orthopedic Surgeries: Surgical HX of;: Orthopedic Surgery (left foot 5th toe amputation, left foot surgery) - Family History Family History: Reports;: Family Hypertension (Mother, Father and Sisters x2.) - Social History Smoking Status: Former smoker (Quit 8 months ago) Frequency of Alcohol Use: None Type of Drug Use: None Review of systems: ROS completed and pertinent positives and negatives in HPI. Exam - Constitutional Vitals: Period Temp Pulse Resp BP Sys/Montero Pulse Ox Last 24 Hr 98.3 F-98.3 F 83-95 13-22 132-133/60-62 93-100 General appearance: normal weight - Head Head exam: Present: normal inspection - Eye Eye exam: Present: other (left eye discolored related to retinal detachment repair history) Pupils: Present: DONYA - Neck Neck exam: Present: normal inspection - Respiratory Respiratory exam: Present: other (Bilateral coarseness; right upper lung worse) - Cardiovascular Cardiovascular exam: Present: regular rate and rhythm - GI/Abdominal GI/Abdominal exam: Present: normal bowel sounds, soft. Absent: guarding, tenderness - Extremities Exam Extremities exam: Present: edema (2+ lower peripheral edema) - Neurological Exam Neurological exam: Present: alert, oriented X3 - Psychiatric Psychiatric exam: Present: normal affect - Skin Skin exam: Present: normal color, warm, dry Results - Labs CBC & BMP: 10/26/16 12:11 10/26/16 12:11 Lab Results: I have reviewed the past 24 hour labs - Diagnostic Findings Procedure: Chest x-ray: report reviewed by me (significant progressive parenchymal findings in the right upper lung which maybe related to postobstructive pneumonia with atelectasis in patient with known right hilar mass and small right pleural effusion; additional progressive atelecstasis/ infilitration at the left lung base. )
[2016-10-26] MEDS: CALCITRIOL 0.25 MCG CAPSULE PO SCH (15:15)
--- NOTE | 2016-10-26 16:08 | Nephrology Consult Note ---
History of Present Illness Chief complaint: ESRD History of present illness: Ms. 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 At the time of her CT earlier this month she was also felt to have pulmonary emboli in the right lower lobe particularly. This was found with a bronchoscopy on October 08. She presents today complaining of some shortness of breath. She also says that she has had a subjective fever. She has had no chills. Chest x-ray demonstrates infiltrate in the right lower lobe and right upper lobe that were not present on previous admission. She underwent hemodialysis on Saturday. On exam she is able to lie flat and is in no distress her neck without jugular venous distention. She has an opaque cornea on the left and is status post previous surgery on the left eye. There is no neck vein distention heart without rub or gallop her chest is clear abdomen soft nontender extremities she does have 1-2+ peripheral edema of both legs. Impression #1 end-stage renal disease #2 squamous cell lung cancer right upper lobe with evidence of new infiltrates in the right long. #3 blind left eye Plan hemodialysis tomorrow. Home Medications Medication Instructions Recorded Confirmed Type Calcitriol [Rocaltrol] 0.25 mcg PO MOWEFR 01/14/16 10/26/16 History Carvedilol [Coreg] 12.5 mg PO BID 01/14/16 10/26/16 History Insulin NPH Hum/Reg Insulin Hm 10 unit SUBCUT BID W/MEALS 01/14/16 10/26/16 History [NovoLIN 70/30] Losartan Potassium 25 mg PO QAM 01/14/16 10/26/16 History traMADol TAB [Ultram] 100 mg PO Q6H PRN 01/14/16 10/26/16 History Atorvastatin [Lipitor] 40 mg PO QAM 10/05/16 10/26/16 History Apixaban [Eliquis] 5 mg PO BID #60 tablet 10/11/16 10/26/16 Rx Calcium Acetate [Phoslo] 667 mg PO TID W/MEALS 10/26/16 10/26/16 History Ondansetron HCl 8 mg PO Q8H PRN 10/26/16 10/26/16 History Allergies Allergy/AdvReac Type Severity Reaction Status Date / Time acetaminophen [From Tylenol] Allergy RASH Verified 10/26/16 11:48 gabapentin [From Neurontin] Allergy RASH Verified 10/26/16 11:48 IVP Dye Allergy RASH Uncoded 10/26/16 11:48 Medical,Surgical,& Family Hx - Medical History Cardio: History of: Hypertension Psychological: No history of: Anxiety Disorders, ADHD, Behavior Problems, Bipolar Disorder, Depression, Previous Suicide Attempt, Psychiatric/Substance Abuse Tx, Schizophrenia, Violent Behavior, Psychiatric Problems Neurology: No history of: Seizures Endocrine: History of: Diabetes Mellitus (IDDM) Respiratory: History of: Lung Cancer Renal: History of: Dialysis (MWF), Renal Failure - Surgical History Reproductive Surgeries: Surgical HX of;: Hysterectomy Orthopedic Surgeries: Surgical HX of;: Orthopedic Surgery (left foot 5th toe amputation, left foot surgery) - Family History Family History: Reports;: Family Hypertension (Mother, Father and Sisters x2.) - Social History Smoking Status: Former smoker (Quit 8 months ago) Frequency of Alcohol Use: None Type of Drug Use: None Review of Systems 12 point system: reviewed and no additional remarkable complaints except as stated Exam - Vital Signs Vital signs: Period Temp Pulse Resp BP Sys/Montero Pulse Ox Last 24 Hr 98.3 F-98.3 F 83-95 13-23 114-139/60-66 93-100 - General Appearance General appearance: well-developed, well-nourished, appears started age EENT: ATNC Neck: no JVD, no thyromegaly, no carotid bruit, supple Respiratory: no kyphosis, no scoliosis Cardiology: no murmurs, no rub, no gallops, no edema, regular rate, regular rhythm, normal S1, normal S2 Gastrointestinal: normoactive bowel sounds Integumentary: no rash, warm and dry Neurologic: no focal deficit, no asterixis, alert and oriented x3, reflexes 2+ and symmetric, gait normal, strength 5/5 Musculoskeletal: no deformities, no erythema, no cyanosis, no clubbing Psychiatric: mood/affect appropriate, cooperative Results - Labs CBC & BMP: 10/26/16 12:11 10/26/16 12:11 Assessment and Plan - Time spent with patient Time spent with patient: Greater than 30 minutes (1) ESRD (end stage renal disease) on dialysis Status: Chronic Assessment and plan: Hemodialysis tomorrow. She usually dialyzes in [facility] Saturday. Current Visit: No (2) Lung cancer Status: Acute Assessment and plan: Squamous cell carcinoma moderately well differentiated diagnosed with bronchoscopy October 08 Current Visit: No (3) Diabetes mellitus Status: Acute Current Visit: No Specialty Discharge - Follow Up or Referrals - Speciality Discharge Instructions Nephrology Instructions: Hemodialysis tomorrow. Agree with antibiotics
[2016-10-26] MEDS ORDERED: ALBUTEROL/IPRATROPIUM 3 ML NEB RESP TX PRN (16:41)
--- NOTE | 2016-10-26 16:42 | Pulmonology Consult Note ---
History of Present Illness Chief complaint: Acute pneumonia. Squamous cell carcinoma the lung. COPD. CRF History of present illness: Ms. Castro is a 70 year old black female dialysis patient who has been seen in the recent past by . I have been asked see this patient and pulmonary consultation. This patient is seen along with Mandi and I assume is her . Willie Mejía nurse practitioner was present. This patient is not a forthcoming historian. She came to the emergency room with a complaint of shortness of breath. No shortness of breath that started that morning which was 10/26/2016. It got worse as the day went on. She has a cough but says she has had no sputum production she denies hemoptysis. The remainder the review of systems is negative. Allergies. Tylenol. Neurontin. IVP dye. Home medicines. See list below. Rocaltrol. Coreg. Insulin. Losartan. Ultram. Lipitor. Eliquis. PhosLo. Past history. Chronic renal failure requiring dialysis. High blood pressure. Squamous cell carcinoma in the anterior segment of the right upper lung with associated lymphadenopathy diagnosed in September [address] Park. Hysterectomy. Left fifth toe amputation and left foot surgery. Right lower lung pulmonary embolus noted on CT of the chest 10/05/2016. This appears to be the reason the patient takes Eliquis. Social history. Patient is a former smoker who quit around April where he 2017. She denies alcohol. Family history. Mother father and 2 sisters had high blood pressure. Chest x-ray. Mild cardiomegaly. Pulmonary arteries are top normal. Significant calcification and underlying mild enlargement of the left hilum. Marked lymphadenopathy in the right hilum. Right upper lung infiltrate with air bronchograms that definitely includes the anterior segment. There is probably involvement in the apical segment also. This is a portable semierect film. There is also an infiltrate in the right middle lung. Back in mid September 2016 there appeared to be a tiny infiltrate in this area. It is now larger. Lab. White count is 14,683.5 segs. H&H is 9.8/30.6. INR is 1.3. D-dimer is 2.1. Electrolytes are normal. Creatinine is 4.6 with a BUN of 37. Glucoses are under fair control. There is a minimal elevation of alkaline Rehana of 122 with normal bilirubin and transaminases. Natruretic peptide is 249. Protein and albumin are low at 5.2 of 1.7 respectively. Globulin is normal at 3.5. No other lab is available. Physical exam. Vital signs. See below Psychiatric. Oriented 3. Patient is not forthcoming with history. Face is symmetrical. Left eye shows a dense cataract in the patient is blind in the left eye the remainder of the cranial nerves appear to be intact. No swelling of the time lips. Neurological. Blind in the left eye. Long track motor functions grossly intact but not examined carefully . Neck symmetrical. No meningismus. Chest. Congestion over the left mainstem bronchus. Decreased breath sounds on the right. No wheezing. No chest wall tenderness. Heart. No gallop Abdomen. Nontender Lower extremities. Nothing to suggest deep venous thrombophlebitis. Skin of the face and hand showed no cancerous infectious lesions. No other areas of skin were examined. The remainder the physical exam is noncontributory. Impression. 1. Squamous cell carcinoma anterior segment right upper lung. 2. Acute right upper lung pneumonia. I doubt this is secondary to obstruction since air bronchograms can be seen within the infiltrate. Also photographs of the lesion from bronchoscopy were examined and this endobronchial lesion was not producing obstruction a few weeks ago. 3. COPD. 4. Significant past history tobacco abuse. Stopped around April 2016 5. Chronic renal failure requiring dialysis. 6. High blood pressure 7. See past history Plan. 1. I agree with Levaquin. 2. Add Cleocin 300 IV piggyback every 6 hours 3. Follow chest x-ray and lab 4. Blood cultures. Sputum for Gram stain culture and sensitivity. Cold agglutinins. Legionella titer. 5. Inhalation therapy with DuoNeb's and Acapella low 4 times a day. 6. Mucinex 600 mg p.o. twice daily 7. See orders. Home Medications Medication Instructions Recorded Confirmed Type Calcitriol [Rocaltrol] 0.25 mcg PO MOWEFR 01/14/16 10/26/16 History Carvedilol [Coreg] 12.5 mg PO BID 01/14/16 10/26/16 History Insulin NPH Hum/Reg Insulin Hm 10 unit SUBCUT BID W/MEALS 01/14/16 10/26/16 History [NovoLIN 70/30] Losartan Potassium 25 mg PO QAM 01/14/16 10/26/16 History traMADol TAB [Ultram] 100 mg PO Q6H PRN 01/14/16 10/26/16 History Atorvastatin [Lipitor] 40 mg PO QAM 10/05/16 10/26/16 History Apixaban [Eliquis] 5 mg PO BID #60 tablet 10/11/16 10/26/16 Rx Calcium Acetate [Phoslo] 667 mg PO TID W/MEALS 10/26/16 10/26/16 History Ondansetron HCl 8 mg PO Q8H PRN 10/26/16 10/26/16 History Allergies Allergy/AdvReac Type Severity Reaction Status Date / Time acetaminophen [From Tylenol] Allergy RASH Verified 10/26/16 11:48 gabapentin [From Neurontin] Allergy RASH Verified 10/26/16 11:48 IVP Dye Allergy RASH Uncoded 10/26/16 11:48 Exam (Pulmonay) H&P - Constitutional Vitals: Period Temp Pulse Resp BP Sys/Montero Pulse Ox Last 24 Hr 97.5 F-98.3 F 83-95 13-23 114-147/60-66 93-100 Medical,Surgical,& Family Hx - Medical History Cardio: History of: Hypertension Psychological: No history of: Anxiety Disorders, ADHD, Behavior Problems, Bipolar Disorder, Depression, Previous Suicide Attempt, Psychiatric/Substance Abuse Tx, Schizophrenia, Violent Behavior, Psychiatric Problems Neurology: No history of: Seizures Endocrine: History of: Diabetes Mellitus (IDDM) Respiratory: History of: Lung Cancer Renal: History of: Dialysis (MWF), Renal Failure - Surgical History Reproductive Surgeries: Surgical HX of;: Hysterectomy Orthopedic Surgeries: Surgical HX of;: Orthopedic Surgery (left foot 5th toe amputation, left foot surgery) - Family History Family History: Reports;: Family Hypertension (Mother, Father and Sisters x2.) - Social History Smoking Status: Former smoker (Quit 8 months ago) Frequency of Alcohol Use: None Type of Drug Use: None Results - Labs CBC & BMP: 10/26/16 12:11 10/26/16 12:11
[2016-10-26] MEDS: CALCIUM ACETATE 667 MG CAPSULE PO SCH (17:14)
[2016-10-26] MEDS: INSULIN NPH/REGULAR 70/30 100 UNIT/ML SUBCUT SCH (18:15)
[2016-10-26] MEDS: CLINDAMYCIN INJ 300 MG in PREMIX 1 EACH IV SCH (18:15)
[2016-10-26] MEDS ORDERED: LORazepam 2 MG/1 ML VIAL IV ONE (18:29)
[2016-10-26] MEDS ORDERED: PROMETHAZINE INJ 12.5 MG in SODIUM CHLORIDE 0.9% 50 ML IV PRN (18:29)
[2016-10-26] MEDS ORDERED: ONDANSETRON 4 MG/2 ML VIAL IV PRN (18:29)
[2016-10-26] MEDS: ALBUTEROL/IPRATROPIUM 3 ML NEB RESP TX SCH (18:30)
[2016-10-26] MEDS: APIXABAN 5 MG TABLET PO SCH (21:19)
[2016-10-26] MEDS: CARVEDILOL 12.5 MG TABLET PO SCH (21:19)
[2016-10-27] MEDS: CLINDAMYCIN INJ 300 MG in PREMIX 1 EACH IV SCH ×4 (00:45→18:56)
[2016-10-27 07:33] LABS: Basophils % 0.1 % (0.0-0.8); Hematocrit 32.7 VOL% (35.7-47.0); Hemoglobin 10.2 GM/DL (12.0-16.0); Immature Granulocytes % 1.6 %; Immature Granulocytes Absolute 0.18 #; Lymphocytes # 0.6 10*3/uL (1.4-4.0); Mean Corpuscular HGB Conc 31.2 GM/DL (32-36); Mean Corpuscular Hemoglobin 28 PG (27-34); Mean Corpuscular Volume 89.6 FL (87-102); Mean Platelet Volume 10.8 FL (9.6-12.0); Monocytes # 0.4 10*3/uL (0.11-0.8); Monocytes % 3.3 % (1.7-12.7); Neutrophils # 9.9 10*3/uL (1.4-7.4); Platelet Count 346 T/CUMM (130-400); Red Blood Count 3.65 MC/CUMM (3.8-5.5); Red Cell Distribution Width 15.9 % (9.3-17.3)
--- NOTE | 2016-10-27 07:41 | Hospitalist Progress Note ---
Assessment and Plan - Time spent with patient Time spent with patient: Less than 30 minutes (1) Pneumonia Status: Acute Assessment and plan: Patient noted to have community-acquired pneumonia plus/minus possible obstruction/aspiration. Patient is being covered with IV Levaquin and Cleocin. She receiving pulmonary toilet. Pulmonary is following and assisting with her care. Current Visit: No (2) ESRD (end stage renal disease) on dialysis Status: Chronic Assessment and plan: Patient been followed by nephrology and is scheduled for hemodialysis today. Current Visit: No (3) Hypertension Status: Chronic Assessment and plan: Blood pressures are well controlled. Continue current medical regimen. Current Visit: No Qualifiers: Hypertension type: essential hypertension Qualified Code(s): I10 - Essential (primary) hypertension (4) Diabetes mellitus Status: Chronic Assessment and plan: Blood sugars are being followed. Will continue her routine medical therapy with Accu-Cheks and sliding scale and make adjustments as appropriate. Current Visit: No Qualifiers: Diabetes mellitus type: type 2 (5) Lung cancer Status: Chronic Current Visit: No Qualifiers: Laterality: right Hospitalist: Subjective Interval history: Patient was seen and chart is been reviewed. Ms. Gale had some nausea requiring antiemetic therapy. She states she does have some shortness of breath but appears to be comfortable. She has had a cough which been nonproductive. She denies any chest pain, abdominal pain. Exam - Constitutional Vitals: Period Temp Pulse Resp BP Sys/Montero Pulse Ox Last 24 Hr 96.2 F-98.3 F 75-95 13-23 114-150/60-67 93-100 General appearance: no acute distress - Head Head exam: Present: normocephalic, atraumatic - Eye Eye exam: Present: other (Blindness in the left eye, opacified) Pupils: Present: DONYA - ENT ENT exam: Present: normal exam, normal oropharynx - Neck Neck exam: Present: normal inspection. Absent: lymphadenopathy, meningismus, tenderness - Respiratory Respiratory exam: Present: other (Decreased breath sounds on the right without wheezing rales or rhonchi noted) - Cardiovascular Cardiovascular exam: Present: regular rate and rhythm. Absent: tachycardia - GI/Abdominal GI/Abdominal exam: Present: normal bowel sounds, soft. Absent: tenderness, rebound - Extremities Exam Extremities exam: Absent: calf tenderness, edema - Back Exam Back exam: Present: normal inspection - Neurological Exam Neurological exam: Present: alert, oriented X3, CN II-XII intact. Absent: motor sensory deficit - Psychiatric Psychiatric exam: Present: normal affect, normal mood. Absent: agitated, anxious - Skin Skin exam: Present: warm, dry. Absent: rash Results - Labs CBC & BMP: 10/27/16 05:14 10/26/16 12:11 Lab Results: I have reviewed the past 24 hour labs
[2016-10-27] MEDS: ALBUTEROL/IPRATROPIUM 3 ML NEB RESP TX SCH ×4 (07:42→19:04)
[2016-10-27 07:58] LABS: Albumin 1.5 G/DL (3.4-5.0); Calcium 7.8 MG/DL (8.5-10.1); Osmolality,Calculated 284.2 MOS/KG (273-304); Potassium 4.7 MMOL/L (3.5-5.1); Risk Ratio 3.52; Thyroid Stimulating Hormone 0.277 uIU/ml (0.358-3.74); Total Protein 4.8 G/DL (6.4-8.3); VLDL CHOLESTEROL 15.2 MG/DL
[2016-10-27 08:10] LABS: Band Neutrophils 9 % (0-10); Burr Cells Slight; Hypochromasia Slight; Lymphocytes 1 % (20-55); Ovalocytes Slight; Platelet Estimate Adequate; Segmented Neutrophils 87 % (50-85); Total Cells Counted 100
[2016-10-27] MEDS: LOSARTAN 25 MG TABLET PO SCH (08:47)
[2016-10-27] MEDS: APIXABAN 5 MG TABLET PO SCH ×2 (08:47→21:39)
[2016-10-27] MEDS: CARVEDILOL 12.5 MG TABLET PO SCH ×2 (08:47→21:41)
[2016-10-27] MEDS: CALCIUM ACETATE 667 MG CAPSULE PO SCH ×3 (08:47→17:56)
[2016-10-27] MEDS: ATORVASTATIN 40 MG TABLET PO SCH (08:47)
[2016-10-27] MEDS: INSULIN NPH/REGULAR 70/30 100 UNIT/ML SUBCUT SCH ×2 (08:54→17:55)
[2016-10-27] MEDS ORDERED: DEXTROSE 50% 25 GM/50 ML VIAL IV PRN (09:02)
[2016-10-27] MEDS ORDERED: GLUCAGON 1 MG VIAL IM PRN (09:02)
--- NOTE | 2016-10-27 09:11 | Oncology Consult Note ---
Assessment and Plan - Time spent with patient Time spent with patient: Greater than 30 minutes (1) Carcinoma of right lung Status: Acute Assessment and plan: I agree with antibiotics for now. I told her to think about whether she would like to even consider treatment for her cancer. We will give her a couple days on antibiotics to see how well she improves. I will then sit back down with her and discuss her options with her once again. This is a disease that will not be cured we are only trying to palliate. Her prognosis is less than 12 months even with chemotherapy. Current Visit: Yes (2) Cancer of left lung Status: Acute Current Visit: Yes (3) Pneumonia Status: Acute Current Visit: No (4) ESRD (end stage renal disease) on dialysis Status: Chronic Current Visit: No (5) Anemia Status: Acute Current Visit: No (6) Diabetes mellitus Status: Chronic Current Visit: No Qualifiers: Diabetes mellitus type: type 2 History of Present Illness History of present illness: Ms. Castro is a 70 year old female who is on hemodialysis for end-stage renal disease and was recently diagnosed with metastatic squamous cell carcinoma of the lung. She has a history of cervical cancer but I do not think this is related to her most recent diagnosis. Her disease is dominantly located in her right thorax but she also has pulmonary nodules in the left lung as well. She has not had a PET scan yet for complete staging. She missed her outpatient appointment with me last week. She is admitted now for what sounds like pneumonia. It may very well be just progression of her disease. She and I had a brief discussion this morning about her diagnoses once again. This is a situation where doing chemotherapy may not be in her best interest given her end -stage renal disease and her advanced age. Her cancer is not one that we will cure and we will only be trying to palliate her. Her prognosis is very poor and I would hate to make her quality of life be poor as well for her remaining months of life. I told her to think about this for the next couple days while we treat her pneumonia with antibiotics. We can then rediscuss whether she wants to do any type of treatment or go on hospice. I am thinking her best option would be hospice. Home Medications Medication Instructions Recorded Confirmed Type Calcitriol [Rocaltrol] 0.25 mcg PO MOWEFR 01/14/16 10/26/16 History Carvedilol [Coreg] 12.5 mg PO BID 01/14/16 10/26/16 History Insulin NPH Hum/Reg Insulin Hm 10 unit SUBCUT BID W/MEALS 01/14/16 10/26/16 History [NovoLIN 70/30] Losartan Potassium 25 mg PO QAM 01/14/16 10/26/16 History traMADol TAB [Ultram] 100 mg PO Q6H PRN 01/14/16 10/26/16 History Atorvastatin [Lipitor] 40 mg PO QAM 10/05/16 10/26/16 History Apixaban [Eliquis] 5 mg PO BID #60 tablet 10/11/16 10/26/16 Rx Calcium Acetate [Phoslo] 667 mg PO TID W/MEALS 10/26/16 10/26/16 History Ondansetron HCl 8 mg PO Q8H PRN 10/26/16 10/26/16 History Allergies Allergy/AdvReac Type Severity Reaction Status Date / Time acetaminophen [From Tylenol] Allergy RASH Verified 10/26/16 11:48 gabapentin [From Neurontin] Allergy RASH Verified 10/26/16 11:48 IVP Dye Allergy RASH Uncoded 10/26/16 11:48 Medical,Surgical,& Family Hx - Medical History Cardio: History of: Hypertension Psychological: No history of: Anxiety Disorders, ADHD, Behavior Problems, Bipolar Disorder, Depression, Previous Suicide Attempt, Psychiatric/Substance Abuse Tx, Schizophrenia, Violent Behavior, Psychiatric Problems Neurology: No history of: Seizures Endocrine: History of: Diabetes Mellitus (IDDM) Respiratory: History of: Lung Cancer Renal: History of: Dialysis (MWF), Renal Failure - Surgical History Reproductive Surgeries: Surgical HX of;: Hysterectomy Orthopedic Surgeries: Surgical HX of;: Orthopedic Surgery (left foot 5th toe amputation, left foot surgery) - Family History Family History: Reports;: Family Hypertension (Mother, Father and Sisters x2.) - Social History Smoking Status: Former smoker (Quit 8 months ago) Frequency of Alcohol Use: None Type of Drug Use: None 12 point system: reviewed and no additional remarkable complaints except as stated - Constitutional Constitutional: Present: fatigue. Absent: chills, fever(s) - Respiratory Respiratory: Present: cough, dyspnea. Absent: hemoptysis Exam - Constitutional Vitals: Period Temp Pulse Resp BP Sys/Montero Pulse Ox Last 24 Hr 96.0 F-98.3 F 75-95 13-23 114-150/60-67 93-100 General appearance: normal weight, no acute distress - Head Head Exam: Present: normocephalic, atraumatic - Eye Eye Exam: Present: EOMI. Absent: scleral icterus Pupils: Present: PERRL - Neck Neck exam: Absent: lymphadenopathy, thyromegaly - Respiratory Respiratory exam: Absent: accessory muscle use, wheezes - Cardiovascular Cardiovascular exam: Present: RRR. Absent: JVD, systolic murmur - GI/Abdominal GI/Abdominal exam: Present: soft. Absent: ascites, distended, mass - Neurological Exam Neurological exam: Present: alert, oriented X3 - Psychiatric Psychiatric exam: Present: normal affect, normal mood - Skin Skin exam: Present: warm, dry Results - Labs CBC & BMP: 10/27/16 05:14 10/27/16 05:14 Lab Results: I have reviewed the past 24 hour labs - Diagnostic Findings Procedure: Chest x-ray: report reviewed by me
--- NOTE | 2016-10-27 09:41 | Dialysis Note ---
Dialysis Note - Dialysis Note Ms. Castro is seen during hemodialysis. She is tolerating today's dialysis well she is in the midst of making a decision regarding whether to take chemotherapy for her advanced lung cancer. She is currently receiving antibiotics for superimposed pneumonia. Today's dialysis going well and for now we will continue with dialysis as scheduled
[2016-10-27] MEDS ORDERED: IRON SUCROSE 100 MG/5 ML VIAL IV SCH (10:00)
--- NOTE | 2016-10-27 11:22 | Pulmonology Progress Note ---
Pulmonary - PN: Subj Interval history: This is a 70-year-old black female dialysis patient who is been seen in the past by Dr. Herbie Park I saw this patient in pulmonary consultation 2016. My impressions were. 1. Squamous cell carcinoma anterior segment right upper lung. 2. Acute right upper lung pneumonia. I doubt this is secondary to obstruction since air bronchograms can be seen within the infiltrate. Also photographs of the lesion from bronchoscopy were examined and this endobronchial lesion was not producing obstruction a few weeks ago. 3. COPD. 4. Significant past history tobacco abuse. Stopped around April 2016 5. Chronic renal failure requiring dialysis. 6. High blood pressure 7. See past history 10/27/2016. Today's chest x-ray continues to show fairly dense right upper lung infiltrate with air bumped bronchograms. The infiltrate in the right middle lung is a little more extensive than I may be some fluid associated with this. The left lung is clear. There are no reports from microbiology. White count is 11,000 with 90 segs. H&H 10.2/32.7. Electrolytes normal. Creatinine is 4.9 with a BUN of 44. Total protein and albumin are low at 4.81.5. Patient has no new complaints and no new requests. Physical exam. Vital signs. See below. Afebrile for the past 24 hours Psychiatric. Oriented 3. Neurologic. Cranial nerves are intact patient moves all 4 extremities Chest. Congestion and localized wheeze over the right upper lung. Heart. No gallop Abdomen. Nondistended. Extremities. Nothing to suggest acute deep venous thrombophlebitis Face is symmetrical. No swelling of the lips or tongue. Neck. No meningismus. Lymphatics. No submandibular cervical supraclavicular or epitrochlear lymph node The remainder of the physical exam is negative Plan. 10/26/2016. 1. I agree with Levaquin. 2. Add Cleocin 300 IV piggyback every 6 hours 3. Follow chest x-ray and lab 4. Blood cultures. Sputum for Gram stain culture and sensitivity. Cold agglutinins. Legionella titer. 5. Inhalation therapy with DuoNeb's and Acapella low 4 times a day. 6. Mucinex 600 mg p.o. twice daily 7. See orders. 10/27/2016. 1. See my note for today above 2. No changes made in regimen. Continue present regimen Exam (Progress Note) - Constitutional Vitals: Period Temp Pulse Resp BP Sys/Montero Pulse Ox Last 24 Hr 96.0 F-98.3 F 75-95 13-23 114-150/60-67 93-100 Results - Labs CBC & BMP: 10/27/16 05:14 10/27/16 05:14
--- NOTE | 2016-10-27 11:44 | XRay Report ---
History: Lung cancer. Pneumonia Date: 10/27/2016 Study: Chest x-ray AP portable Comparison exam: 10/26/2016 There is continued parenchymal consolidation in the right mid to lower lung in this patient with a history of lung cancer and pneumonia. The right lower lobe parenchymal consolidation is increased. There is mild right-sided pleural effusion. The left lung is well-expanded and clear. There is cardiomegaly. The osseous structures are unchanged. Impression: Mildly increased pneumonia in the right lower lobe compared to the previous study PROCEDURE INTERPRETED AT [facility] DEPARTMENT OF RADIOLOGY Final Report Signed by: Dr. Rosa Isela Berry
[2016-10-27] MEDS: INSULIN LISPRO 100 UNIT/ML SUBCUT SCH ×3 (12:08→22:38)
[2016-10-27] MEDS ORDERED: IRON SUCROSE 100 MG in SODIUM CHLORIDE 0.9% 100 ML IV ONE (13:00)
[2016-10-27] MEDS: MORPHINE 2 MG/1 ML SYRINGE IV PRN (22:30)
[2016-10-28] MEDS: ALBUTEROL/IPRATROPIUM 3 ML NEB RESP TX SCH ×4 (00:05→20:10)
[2016-10-28] MEDS: CLINDAMYCIN INJ 300 MG in PREMIX 1 EACH IV SCH ×5 (00:31→23:06)
--- NOTE | 2016-10-28 08:04 | Hospitalist Progress Note ---
Assessment and Plan - Time spent with patient Time spent with patient: Less than 30 minutes (1) Pneumonia Status: Acute Assessment and plan: 10/28/16: No new issues have arisen. Patient noted to have community-acquired pneumonia plus/minus possible obstruction/aspiration. Patient is being covered with IV Levaquin and Cleocin. She receiving pulmonary toilet. Pulmonary is following and assisting with her care. Current Visit: No (2) ESRD (end stage renal disease) on dialysis Status: Chronic Assessment and plan: Patient been followed by nephrology and will be receiving hemodialysis on her routine schedule Current Visit: No (3) Hypertension Status: Chronic Assessment and plan: Blood pressures are well controlled. Continue current medical regimen. Current Visit: No Qualifiers: Hypertension type: essential hypertension Qualified Code(s): I10 - Essential (primary) hypertension (4) Diabetes mellitus Status: Chronic Assessment and plan: Blood sugars are being followed. Will continue her routine medical therapy with Accu-Cheks and sliding scale and make adjustments as appropriate. Current Visit: No Qualifiers: Diabetes mellitus type: type 2 (5) Lung cancer Status: Chronic Assessment and plan: Note Dr. Oliveros's documentation from yesterday Current Visit: No Qualifiers: Laterality: right Hospitalist: Subjective Interval history: Mrs. Castro continues to complain of shortness of breath. She has had no cough or hemoptysis. She has been afebrile. Noted documentation by pulmonary and oncology and appreciate their assistance. Exam - Constitutional Vitals: Period Temp Pulse Resp BP Sys/Montero Pulse Ox Last 24 Hr 97.0 F-97.6 F 80-95 15-20 101-118/46-98 91-100 General appearance: no acute distress - Head Head exam: Present: normocephalic, atraumatic - Eye Eye exam: Present: EOMI, other (Opacified left eye with associated blindness) - ENT ENT exam: Present: normal oropharynx - Respiratory Respiratory exam: Present: other (Decreased breath sounds on the right but no audible wheezing rales or rhonchi at this time) - Cardiovascular Cardiovascular exam: Present: regular rate and rhythm. Absent: tachycardia - GI/Abdominal GI/Abdominal exam: Present: normal bowel sounds, soft. Absent: mass, tenderness , rebound - Extremities Exam Extremities exam: Absent: calf tenderness, edema - Neurological Exam Neurological exam: Present: alert, oriented X3, CN II-XII intact - Skin Skin exam: Present: warm, dry. Absent: rash Results - Labs CBC & BMP: 10/27/16 05:14 10/27/16 05:14 Lab Results: I have reviewed the past 24 hour labs
[2016-10-28] MEDS: CALCIUM ACETATE 667 MG CAPSULE PO SCH ×3 (08:39→17:40)
[2016-10-28] MEDS: INSULIN NPH/REGULAR 70/30 100 UNIT/ML SUBCUT SCH ×2 (08:41→17:38)
--- NOTE | 2016-10-28 09:22 | Nephrology Progress Note ---
Nephrology - PN: Subj Interval history: Ms. Castro is seen in follow-up of her end-stage renal disease she dialyzed yesterday and did well. She will dialyze tomorrow to get back on her Saturday schedule. She continues to receive antibiotics for is felt to be postobstructive pneumonia with the obstruction being caused by her lung cancer. She has been afebrile and is in no distress now. She does have some shortness of breath with minimal exertion Exam (PN)-Nephrology - Vital Signs Vital signs: Period Temp Pulse Resp BP Sys/Montero Pulse Ox Last 24 Hr 97.0 F-97.6 F 80-95 15-20 101-118/46-98 91-100 - Lab 10/27/16 05:14 10/27/16 05:14 Most recent lab results Calcium 7.8 MG/DL (8.5-10.1) L 10/27/16 05:14 Assessment and Plan (1) ESRD (end stage renal disease) on dialysis Status: Chronic Assessment and plan: Hemodialysis tomorrow. She usually dialyzes in [place] Saturday. Current Visit: No (2) Lung cancer Status: Chronic Assessment and plan: Squamous cell carcinoma moderately well differentiated diagnosed with bronchoscopy October 08 Current Visit: No Qualifiers: Laterality: right (3) Diabetes mellitus Status: Chronic Current Visit: No Qualifiers: Diabetes mellitus type: type 2
[2016-10-28] MEDS: LOSARTAN 25 MG TABLET PO SCH (09:38)
[2016-10-28] MEDS: APIXABAN 5 MG TABLET PO SCH ×2 (09:38→22:56)
[2016-10-28] MEDS: CARVEDILOL 12.5 MG TABLET PO SCH ×2 (09:39→22:56)
[2016-10-28] MEDS: ATORVASTATIN 40 MG TABLET PO SCH (09:39)
--- NOTE | 2016-10-28 09:57 | Oncology Progress Note ---
Assessment and Plan (1) Lung cancer Status: Acute Current Visit: Yes (2) Cancer of left lung Status: Acute Current Visit: Yes (3) Pneumonia Status: Acute Current Visit: No (4) ESRD (end stage renal disease) on dialysis Status: Chronic Current Visit: No (5) Anemia Status: Acute Current Visit: No (6) Diabetes mellitus Status: Chronic Current Visit: No Qualifiers: Diabetes mellitus type: type 2 Oncology Subjective PN Interval history: I sit down today with Ms. Castro and had a lengthy discussion about her cancer. She does not want to take any type of chemotherapy which I completely agree with as it would only be palliative in nature. She is actually considering if she would like to just stop her dialysis as well given her diagnosis of stage IV lung cancer. I explained to her that is a personal decision but there are many people on dialysis that decided to stop after they are told they have some type of advanced malignancy. I told her that we will likely set her up on home hospice when she is ready for discharge. I will call [facility] tomorrow and make them aware of her case so that I can continue following her even though we are not doing any type of chemotherapy. If she would like to continue on with dialysis, this can be done so even while on hospice. She seemed to be at peace with this decision. She states that she is ready to pass at any time has no reason to go through the rigors and side effect of chemotherapy with no chance of cure. Exam - Constitutional Vitals: Period Temp Pulse Resp BP Sys/Montero Pulse Ox Last 24 Hr 97.0 F-97.6 F 80-95 15-20 101-118/46-98 91-100 General appearance: normal weight, no acute distress - Head Head Exam: Present: normocephalic, atraumatic - Eye Eye Exam: Present: EOMI Pupils: Present: PERRL - ENT ENT exam: Present: normal exam, normal oropharynx - Respiratory Respiratory exam: Present: CTAB. Absent: wheezes - Cardiovascular Cardiovascular exam: Present: RRR. Absent: JVD Results - Labs CBC & BMP: 10/27/16 05:14 10/27/16 05:14
[2016-10-28] MEDS: INSULIN LISPRO 100 UNIT/ML SUBCUT SCH ×4 (10:41→23:04)
[2016-10-28] MEDS: LEVOFLOXACIN INJ 500 MG in PREMIX 1 EACH IV SCH (13:15)
--- NOTE | 2016-10-28 14:29 | Pulmonology Progress Note ---
Pulmonary - PN: Subj Interval history: This is a 70-year-old black female dialysis patient who is been seen in the past by Dr. Herbie Park I saw this patient in pulmonary consultation 2016. My impressions were. 1. Squamous cell carcinoma anterior segment right upper lung. 2. Acute right upper lung pneumonia. I doubt this is secondary to obstruction since air bronchograms can be seen within the infiltrate. Also photographs of the lesion from bronchoscopy were examined and this endobronchial lesion was not producing obstruction a few weeks ago. 3. COPD. 4. Significant past history tobacco abuse. Stopped around April 2016 5. Chronic renal failure requiring dialysis. 6. High blood pressure 7. See past history 10/27/2016. Today's chest x-ray continues to show fairly dense right upper lung infiltrate with air bumped bronchograms. The infiltrate in the right middle lung is a little more extensive than I may be some fluid associated with this. The left lung is clear. There are no reports from microbiology. White count is 11,000 with 90 segs. H&H 10.2/32.7. Electrolytes normal. Creatinine is 4.9 with a BUN of 44. Total protein and albumin are low at 4.81.5. Patient has no new complaints and no new requests. 10/28/2016. This patient was seen along with family members today she says she is better and she thinks she is breathing better. She did not have an x-ray today. Her glucoses are under good control all lab was reviewed. Microbiology has no positive results so far. There were no new requests. There were no complaints. I think in general the patient has improved and looks a little stronger. I will order chest x-ray for tomorrow Physical exam. Vital signs. See below. Afebrile for the past 24 hours Psychiatric. Oriented 3. Neurologic. Cranial nerves are intact patient moves all 4 extremities Chest. Congestion and localized wheeze over the right upper lung. Heart. No gallop Abdomen. Nondistended. Extremities. Nothing to suggest acute deep venous thrombophlebitis Face is symmetrical. No swelling of the lips or tongue. Neck. No meningismus. Lymphatics. No submandibular cervical supraclavicular or epitrochlear lymph node The remainder of the physical exam is negative Plan. 10/26/2016. 1. I agree with Levaquin. 2. Add Cleocin 300 IV piggyback every 6 hours 3. Follow chest x-ray and lab 4. Blood cultures. Sputum for Gram stain culture and sensitivity. Cold agglutinins. Legionella titer. 5. Inhalation therapy with DuoNeb's and Acapella low 4 times a day. 6. Mucinex 600 mg p.o. twice daily 7. See orders. 10/27/2016. 1. See my note for today above 2. No changes made in regimen. Continue present regimen 10/28/2016. 1. See today's note above 2. E PA and lateral chest x-ray in a.m. 3. Dr. cast [place] will take over tomorrow Exam (Progress Note) - Constitutional Vitals: Period Temp Pulse Resp BP Sys/Montero Pulse Ox Last 24 Hr 97.0 F-97.8 F 80-95 15-20 101-123/46-98 91-100 Results - Labs CBC & BMP: 10/27/16 05:14 10/27/16 05:14
[2016-10-29] MEDS: ALBUTEROL/IPRATROPIUM 3 ML NEB RESP TX SCH ×5 (00:01→19:21)
--- NOTE | 2016-10-29 07:59 | XRay Report ---
Exam: XR chest 2V Date: 10/29/2016 4:00 AM Indication: Pneumonia history of squamous cell carcinoma Comparison: None Technical: PA lateral Findings: Low volume effusions present. Shunt vascularity present with air bronchograms and/or edema with underlying mass suspected in the right hilar region volume loss right lung base. Left lung reveals no obvious effusions. A few nodes are suspected are calcified perihilar region is calcic is in tracheobronchial tree. ASVD is present. Impression: 1. Persistent right pleural effusion with underlying mass atelectatic change infiltrate and consolidation present right lung 2. Small nodes in the left aortopulmonic window 3. No pneumothorax. PROCEDURE INTERPRETED AT [facility] DEPARTMENT OF RADIOLOGY Final Report Signed by: Dr. Jay Prasad
--- NOTE | 2016-10-29 08:21 | Hospitalist Progress Note ---
Assessment and Plan - Time spent with patient Time spent with patient: Less than 30 minutes (1) Pneumonia Status: Acute Assessment and plan: 10/28/16: No new issues have arisen. Patient noted to have community-acquired pneumonia plus/minus possible obstruction/aspiration. Patient is being covered with IV Levaquin and Cleocin. She receiving pulmonary toilet. Pulmonary is following and assisting with her care. 11/25/16: Continuing IV antibiotic coverage with Levaquin and Cleocin. Pulmonary continuing to assist with her care. Current Visit: No (2) ESRD (end stage renal disease) on dialysis Status: Chronic Assessment and plan: Patient been followed by nephrology and will be receiving hemodialysis on her routine schedule 10/29/16: Patient had a discussion with oncology yesterday and she is considering discontinuation of dialysis at this time. Nephrology is following and will allow them to further this discussion. Current Visit: No (3) Hypertension Status: Chronic Assessment and plan: Blood pressures are well controlled. Continue current medical regimen. Current Visit: No Qualifiers: Hypertension type: essential hypertension Qualified Code(s): I10 - Essential (primary) hypertension (4) Diabetes mellitus Status: Chronic Assessment and plan: Blood sugars are being followed. Will continue her routine medical therapy with Accu-Cheks and sliding scale and make adjustments as appropriate. Current Visit: No Qualifiers: Diabetes mellitus type: type 2 (5) Lung cancer Status: Chronic Assessment and plan: Note Dr. Oliveros's documentation from yesterday 10/29/16: Patient is discuss further treatment with oncology and apparently declines. She is also considering hospice care and discontinuation of hemodialysis. Current Visit: No Qualifiers: Laterality: right Hospitalist: Subjective Interval history: Ms. Castro has no complaints today. She is currently eating breakfast. We had a discussion about her plans concerning chemo and possible dialysis. 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 Absent: mass, tenderness , rebound - Extremities Exam Extremities exam: Absent: calf tenderness, edema - Back Exam Back exam: Present: normal inspection - Neurological Exam Neurological exam: Present: alert, oriented X3, CN II-XII intact. Absent: motor sensory deficit - Psychiatric Psychiatric exam: Present: normal affect, normal mood. Absent: agitated, anxious - Skin Skin exam: Present: warm, dry. Absent: rash Results - Labs CBC & BMP: 10/27/16 05:14 10/27/16 05:14 Lab Results: I have reviewed the past 24 hour labs - Diagnostic Findings Procedure: Chest x-ray: report reviewed by me
--- NOTE | 2016-10-29 09:42 | Dialysis Note ---
Dialysis Note - Dialysis Note Patient seen on dialysis she is tolerating the procedure. Blood pressure 137/ 64. Cardiovascular is regular rate lungs are clear abdomen is soft
[2016-10-29] MEDS: INSULIN LISPRO 100 UNIT/ML SUBCUT SCH ×4 (09:44→22:49)
[2016-10-29] MEDS: CALCIUM ACETATE 667 MG CAPSULE PO SCH ×3 (09:46→17:19)
--- NOTE | 2016-10-29 10:18 | Nephrology Progress Note ---
Nephrology - PN: Subj Interval history: Ms. Tobias seen during her hemodialysis and she is tolerating it well. We are removing 3 kg of volume. Her chest x-ray is worse with progressive infiltrate in the right mid zone. She is decided against any active chemotherapy. She is obviously elected to continue hemodialysis for now. As per Dr. Dennis she will be set up with hospice care at home. She does have fever with temps to 100.3 and is on antibiotic therapy for now. Exam (PN)-Nephrology - Vital Signs Vital signs: Period Temp Pulse Resp BP Sys/Montero Pulse Ox Last 24 Hr 97.8 F-100.8 F 70-114 14-20 123-156/60-74 88-99 - Lab 10/27/16 05:14 10/27/16 05:14 Most recent lab results Calcium 7.8 MG/DL (8.5-10.1) L 10/27/16 05:14 Assessment and Plan (1) ESRD (end stage renal disease) on dialysis Status: Chronic Assessment and plan: Hemodialysis tomorrow. She usually dialyzes in [place] Saturday. Current Visit: No (2) Lung cancer Status: Chronic Assessment and plan: Squamous cell carcinoma moderately well differentiated diagnosed with bronchoscopy October 08 Current Visit: No Qualifiers: Laterality: right (3) Diabetes mellitus Status: Chronic Current Visit: No Qualifiers: Diabetes mellitus type: type 2
[2016-10-29] MEDS: INSULIN NPH/REGULAR 70/30 100 UNIT/ML SUBCUT SCH ×2 (13:12→17:19)
[2016-10-29] MEDS: APIXABAN 5 MG TABLET PO SCH ×2 (13:13→20:21)
[2016-10-29] MEDS: CLINDAMYCIN INJ 300 MG in PREMIX 1 EACH IV SCH ×3 (13:13→17:20)
[2016-10-29] MEDS: LOSARTAN 25 MG TABLET PO SCH (13:13)
[2016-10-29] MEDS: CARVEDILOL 12.5 MG TABLET PO SCH ×3 (13:14→20:21)
[2016-10-29] MEDS: ATORVASTATIN 40 MG TABLET PO SCH (13:14)
[2016-10-29] MEDS: CALCITRIOL 0.25 MCG CAPSULE PO SCH (17:19)
[2016-10-29] MEDS: IBUPROFEN 400 MG TABLET PO PRN (19:40)
[2016-10-30] MEDS: CLINDAMYCIN INJ 300 MG in PREMIX 1 EACH IV SCH ×4 (00:32→18:00)
--- NOTE | 2016-10-30 06:50 | Hospitalist Progress Note ---
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 Imaging pattern is consistent with stage IV disease. There has been progression with bronchial obstruction and postobstructive pneumonic changes. The patient is DNR and is not interested in pursuing active treatment for lung cancer. Current Visit: No Qualifiers: Laterality: right (3) Diabetes mellitus Status: Chronic Current Visit: No Qualifiers: Diabetes mellitus type: type 2 Hospitalist: Subjective Interval history: 70-year-old female hypertensive diabetic with end-stage renal disease on chronic renal replacement therapy. She had presented in September with a cough. CT scan of the chest showed proximal right bronchial lesion with adenopathy and peripheral pulmonary nodules. She underwent bronchoscopy cultures were negative , pathology report indicates a moderately differentiated squamous cell carcinoma. She was readmitted for increasing shortness of breath with radiographic deterioration consistent with endobronchial obstruction and right upper lobe volume loss and infiltrate. She has declined chemotherapy but continues her dialysis. She was stable overnight and describes no symptoms this morning. During her initial hospital stay CT scan demonstrated pulmonary embolus the patient at that time was placed on apixaban which has been continued. On this admission she demonstrates a mildly suppressed TSH level with mildly elevated free T4. Exam - Constitutional Vitals: Period Temp Pulse Resp BP Sys/Montero Pulse Ox Last 24 Hr 97.6 F-102.4 F 77-103 16-20 100-142/45-70 90-99 General appearance: under weight - Respiratory Respiratory exam: Present: decreased breath sounds (No breath sounds right upper lobe). Absent: rales, rhonchi, wheezes - Cardiovascular Cardiovascular exam: Present: regular rate and rhythm - GI/Abdominal GI/Abdominal exam: Absent: distended, organomegaly, tenderness - Extremities Exam Extremities exam: Absent: edema - Neurological Exam Neurological exam: Present: alert, oriented X3 Results - Labs CBC & BMP: 10/27/16 05:14 10/27/16 05:14
[2016-10-30] MEDS: ALBUTEROL/IPRATROPIUM 3 ML NEB RESP TX SCH ×4 (07:29→19:23)
[2016-10-30] MEDS: LOSARTAN 25 MG TABLET PO SCH (08:24)
[2016-10-30] MEDS: CALCIUM ACETATE 667 MG CAPSULE PO SCH ×3 (08:24→16:52)
[2016-10-30] MEDS: CARVEDILOL 12.5 MG TABLET PO SCH ×2 (08:24→20:37)
[2016-10-30] MEDS: ATORVASTATIN 40 MG TABLET PO SCH (08:24)
[2016-10-30] MEDS: APIXABAN 5 MG TABLET PO SCH ×2 (08:24→20:37)
[2016-10-30] MEDS: INSULIN LISPRO 100 UNIT/ML SUBCUT SCH ×4 (08:25→22:47)
[2016-10-30] MEDS: INSULIN NPH/REGULAR 70/30 100 UNIT/ML SUBCUT SCH ×2 (08:25→16:51)
--- NOTE | 2016-10-30 10:35 | Nephrology Progress Note ---
Nephrology - PN: Subj Interval history: Patient is without complaints. Physical exam general the patient is in no acute distress Assessment/plan 1. ESRD we will continue hemodialysis support 2. Lung cancer 3. Anemia-patient's hematocrits around 31% 4. Hypertension this is controlled Exam (PN)-Nephrology - Vital Signs Vital signs: Period Temp Pulse Resp BP Sys/Montero Pulse Ox Last 24 Hr 96.6 F-102.4 F 77-103 16-20 100-140/45-70 90-99 - Lab 10/27/16 05:14 10/27/16 05:14 Most recent lab results Calcium 7.8 MG/DL (8.5-10.1) L 10/27/16 05:14
--- NOTE | 2016-10-30 10:35 | Pulmonology Progress Note ---
Pulmonary - PN: Subj Interval history: This 70-year-old black female has lung cancer with postobstructive pneumonia. She is a little better with antibiotics. She has renal failure and has been on dialysis. She has decided she does not want any further chemotherapy. Trying to decide about the dialysis to see if she can get home hospice care. Basically agree with which are doing and will follow up as needed. Exam (Progress Note) - Constitutional Vitals: Period Temp Pulse Resp BP Sys/Montero Pulse Ox Last 24 Hr 96.6 F-102.4 F 77-103 16-20 100-140/45-70 90-99 Exam: Patient's alert and tearful. Vital signs normal. Pupils react to light. Throat is clear. Neck supple no bruits. Chest decreased breath sounds on the right side and a few scattered rhonchi. Heart normal rate and rhythm no murmurs. Abdomen soft nontender no masses. Extremities no clubbing cyanosis or edema. Calves nontender. Results - Labs CBC & BMP: 10/27/16 05:14 10/27/16 05:14 Lab Results: I have reviewed the past 24 hour labs - Diagnostic Findings Procedure: Chest x-ray: image reviewed by me (Right upper lobe pneumonia which appears to be postobstructive. Tiny right pleural effusion.) Assessment and Plan (1) Pneumonia Status: Acute Assessment and plan: Postobstructive right upper lobe pneumonia. Continuing antibiotics. Likely to have more problems with this if the primary cancer is not shrunk with treatment. Current Visit: No (2) ESRD (end stage renal disease) on dialysis Status: Chronic Assessment and plan: Continuing dialysis per renal. Patient and family tried to decide whether to continue with dialysis in the face of lung cancer that would not have further treatment. Current Visit: No (3) Lung cancer Status: Acute Assessment and plan: Oncology has followed. Patient has decided against any further chemotherapy. Current Visit: Yes
[2016-10-30] MEDS: LEVOFLOXACIN INJ 500 MG in PREMIX 1 EACH IV SCH (12:50)
[2016-10-31] MEDS: ALBUTEROL/IPRATROPIUM 3 ML NEB RESP TX SCH ×4 (00:30→19:07)
[2016-10-31] MEDS: CLINDAMYCIN INJ 300 MG in PREMIX 1 EACH IV SCH ×4 (00:52→18:47)
--- NOTE | 2016-10-31 06:37 | Hospitalist Progress Note ---
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 Imaging pattern is consistent with stage IV disease. There has been progression with bronchial obstruction and postobstructive pneumonic changes. The patient is DNR and is not interested in pursuing active treatment for lung cancer. Current Visit: No Qualifiers: Laterality: right (3) Diabetes mellitus Status: Chronic Current Visit: No Qualifiers: Diabetes mellitus type: type 2 Hospitalist: Subjective Interval history: 70-year-old female with hypertension and diabetes with end-stage renal disease on chronic renal replacement therapy, had presented in September with a cough. CT scan of the chest showed proximal right bronchial lesion with adenopathy and peripheral nodules. At bronchoscopy she was identified as having a moderately differentiated squamous cell carcinoma of the lung. She represented on this occasion with collapse of the right upper and middle lung zones associated with endobronchial encroachment due to her malignancy. She has declined any chemoradiation treatment for presumptive stage IV lung cancer. She is continued on dialysis which she has tolerated well. On her last hospitalization she was identified as having small pulmonary emboli associated with her CT scan result and is on treatment with apixaban. She rested comfortably overnight and she remains afebrile since 28 October. Exam - Constitutional Vitals: Period Temp Pulse Resp BP Sys/Montero Pulse Ox Last 24 Hr 96.6 F-99.9 F 78-103 17-20 104-134/52-95 92-100 General appearance: under weight - Respiratory Respiratory exam: Present: decreased breath sounds (Minimal breath sounds in the right lung with vesicular changes.). Absent: rales, rhonchi, wheezes - Cardiovascular Cardiovascular exam: Present: regular rate and rhythm - GI/Abdominal GI/Abdominal exam: Present: normal bowel sounds. Absent: tenderness - Extremities Exam Extremities exam: Absent: edema - Neurological Exam Neurological exam: Present: alert, oriented X3 Results - Labs CBC & BMP: 10/27/16 05:14 10/27/16 05:14
[2016-10-31] MEDS: INSULIN LISPRO 100 UNIT/ML SUBCUT SCH ×4 (07:34→21:59)
--- NOTE | 2016-10-31 08:31 | Nephrology Progress Note ---
Nephrology - PN: Subj Interval history: Ms. Castro is seen in follow-up of her end-stage renal disease. She is doing well and has been afebrile for the past 24 hours. She continues to receive antibiotics for her pneumonia. She plans to continue dialysis once she is discharged. As per Dr. Zamarripa I think that will be fine with hospice since her hospice is for her cancer diagnosis. We will plan to dialyze today Exam (PN)-Nephrology - Vital Signs Vital signs: Period Temp Pulse Resp BP Sys/Montero Pulse Ox Last 24 Hr 97.8 F-99.9 F 85-103 17-20 104-134/52-95 92-100 - Lab 10/27/16 05:14 10/27/16 05:14 Most recent lab results Calcium 7.8 MG/DL (8.5-10.1) L 10/27/16 05:14 Assessment and Plan (1) ESRD (end stage renal disease) on dialysis Status: Chronic Assessment and plan: Hemodialysis tomorrow. She usually dialyzes in [place] Saturday. Current Visit: No (2) Lung cancer Status: Acute Assessment and plan: Squamous cell carcinoma moderately well differentiated diagnosed with bronchoscopy October 08 Current Visit: No Qualifiers: Laterality: right (3) Diabetes mellitus Status: Chronic Current Visit: No Qualifiers: Diabetes mellitus type: type 2
[2016-10-31] MEDS: CALCIUM ACETATE 667 MG CAPSULE PO SCH ×3 (08:33→17:47)
[2016-10-31] MEDS: ATORVASTATIN 40 MG TABLET PO SCH (08:33)
[2016-10-31] MEDS: APIXABAN 5 MG TABLET PO SCH ×2 (08:33→20:27)
[2016-10-31] MEDS: CARVEDILOL 12.5 MG TABLET PO SCH ×2 (08:34→20:27)
[2016-10-31] MEDS: LOSARTAN 25 MG TABLET PO SCH (08:34)
[2016-10-31] MEDS: INSULIN NPH/REGULAR 70/30 100 UNIT/ML SUBCUT SCH ×2 (08:34→17:53)
--- NOTE | 2016-10-31 09:56 | Event Note ---
Patient off the floor for dialysis. Nothing to add really. Plans noted for hospice care. I will sign off. Please call if needed further.
--- NOTE | 2016-10-31 12:59 | Dialysis Note ---
Dialysis Note - Dialysis Note Ms. Heller is seen during her hemodialysis. She is tolerating it well. Plan is to continue with her hemodialysis. She has made a decision to not take chemotherapy for her lung cancer.
[2016-10-31] MEDS: CALCITRIOL 0.25 MCG CAPSULE PO SCH (15:29)
[2016-10-31] MEDS: IBUPROFEN 400 MG TABLET PO PRN (20:27)
[2016-11-01] MEDS: ALBUTEROL/IPRATROPIUM 3 ML NEB RESP TX SCH ×4 (00:29→20:19)
[2016-11-01] MEDS: CLINDAMYCIN INJ 300 MG in PREMIX 1 EACH IV SCH ×4 (01:05→17:54)
--- NOTE | 2016-11-01 07:13 | Hospitalist Progress Note ---
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 Imaging pattern is consistent with stage IV disease. There has been progression with bronchial obstruction and postobstructive pneumonic changes. The patient is DNR and is not interested in pursuing active treatment for lung cancer. After several days of being afebrile on the current antibiotic regimen the patient last evening demonstrated a temperature spike with hemodynamic stability. Current Visit: No Qualifiers: Laterality: right (3) Diabetes mellitus Status: Chronic Current Visit: No Qualifiers: Diabetes mellitus type: type 2 Hospitalist: Subjective Interval history: 70-year-old female hypertension diabetes developing end-stage renal disease on chronic renal replacement therapy. She presented in September with a cough CT scan of the chest showed prominent right bronchial lesion with adenopathy and peripheral nodules. Tissue obtained a bronchoscopy was diagnostic for moderately differentiated squamous cell carcinoma of the lung. She was readmitted on this occasion with increased shortness of breath with radiographic collapse of the right upper lobe lung olmos associated with endobronchial encroachment consistent with a postobstructive pneumonia. Blood cultures have been negative, last evening for the first time several days she had an elevated temperature (101.1). She has declined any radiation or chemotherapy for presumptive stage IV lung cancer. She is continuing on dialysis at this time and a hospice referral has been made. She noticed no new complaints overnight. The patient was discovered to have a small pulmonary embolus on her initial CT scanning and has been placed on apixaban. Exam - Constitutional Vitals: Period Temp Pulse Resp BP Sys/Montero Pulse Ox Last 24 Hr 97.5 F-101.1 F 79-98 16-22 106-130/48-56 90-99 General appearance: under weight - Respiratory Respiratory exam: Present: other (Markedly decreased breath sounds on the right side with vesicular change). Absent: rales, rhonchi, wheezes - Cardiovascular Cardiovascular exam: Present: regular rate and rhythm - GI/Abdominal GI/Abdominal exam: Present: normal bowel sounds. Absent: tenderness - Extremities Exam Extremities exam: Absent: edema - Neurological Exam Neurological exam: Present: alert, oriented X3 Results - Labs CBC & BMP: 10/27/16 05:14 10/27/16 05:14
--- NOTE | 2016-11-01 08:07 | Nephrology Progress Note ---
Nephrology - PN: Subj Interval history: Ms. Castro is seen in follow-up of her end-stage renal disease. She has stage IV lung cancer with postobstructive pneumonia and did have fever to 101 last night. She tells me today she is ready to go home and has home oxygen. She could be dialyzed at the [facility] on Saturday. We will plan to dialyze her tomorrow here if she remains hospitalized. She is in no distress. Exam (PN)-Nephrology - Vital Signs Vital signs: Period Temp Pulse Resp BP Sys/Montero Pulse Ox Last 24 Hr 97.4 F-101.1 F 77-98 16-22 106-126/48-56 90-99 - Lab 10/27/16 05:14 10/27/16 05:14 Most recent lab results Calcium 7.8 MG/DL (8.5-10.1) L 10/27/16 05:14 Assessment and Plan (1) ESRD (end stage renal disease) on dialysis Status: Chronic Assessment and plan: Hemodialysis tomorrow. She usually dialyzes in [place] Saturday. Current Visit: No (2) Lung cancer Status: Acute Assessment and plan: Squamous cell carcinoma moderately well differentiated diagnosed with bronchoscopy October 08 Current Visit: No Qualifiers: Laterality: right (3) Diabetes mellitus Status: Chronic Current Visit: No Qualifiers: Diabetes mellitus type: type 2
[2016-11-01] MEDS: INSULIN NPH/REGULAR 70/30 100 UNIT/ML SUBCUT SCH ×2 (08:56→17:54)
[2016-11-01] MEDS: CALCIUM ACETATE 667 MG CAPSULE PO SCH ×3 (08:57→17:55)
[2016-11-01] MEDS: ATORVASTATIN 40 MG TABLET PO SCH (08:57)
[2016-11-01] MEDS: APIXABAN 5 MG TABLET PO SCH ×2 (08:57→20:16)
[2016-11-01] MEDS: CARVEDILOL 12.5 MG TABLET PO SCH ×2 (08:57→20:16)
[2016-11-01] MEDS: LOSARTAN 25 MG TABLET PO SCH (08:57)
[2016-11-01] MEDS: INSULIN LISPRO 100 UNIT/ML SUBCUT SCH ×4 (08:58→20:46)
[2016-11-01] MEDS: LEVOFLOXACIN INJ 500 MG in PREMIX 1 EACH IV SCH (13:46)
[2016-11-01] MEDS: IBUPROFEN 400 MG TABLET PO PRN (20:16)
[2016-11-01] MEDS: DESITIN 4OZ/NYSTATIN 15 GRAM MIXTURE PASTE TOP SCH (20:21)
[2016-11-02] MEDS: ALBUTEROL/IPRATROPIUM 3 ML NEB RESP TX SCH ×3 (00:20→13:51)
[2016-11-02] MEDS: MORPHINE 2 MG/1 ML SYRINGE IV PRN (00:40)
[2016-11-02] MEDS: CLINDAMYCIN INJ 300 MG in PREMIX 1 EACH IV SCH ×3 (00:41→13:27)
[2016-11-02] MEDS: CALCIUM ACETATE 667 MG CAPSULE PO SCH ×2 (08:06→13:27)
[2016-11-02] MEDS: INSULIN LISPRO 100 UNIT/ML SUBCUT SCH ×2 (08:08→13:33)
--- NOTE | 2016-11-02 08:25 | Dialysis Note ---
Dialysis Note - Dialysis Note Ms. Castro is seen during her hemodialysis. She is calm and breathing easily. She says she had a rough night with pulling her IV out and an episode of shortness of breath which resolved with respiratory treatment. She is currently not short of breath and her chest is fairly clear to exam. We are dialyzing today and removing fluid as tolerated. She did have fever again last night 202. Antibiotic therapy continues. We will check a chest x-ray and radiology tomorrow to reassess the volume status and changes in her pneumonia in the right lung.
--- NOTE | 2016-11-02 13:25 | Discharge Summary ---
Hospital Course - Hospital Course Hospital Course: Mrs Castro came from hospice with pneumonia. She has moderately differentiated squamous cell lung cancer that is encroaching on her right bronchi and causing upper and middle lobe collapse. Her CXR is consistent with stage 4 disease. She has decided she wants hospice care instead of treatment. She has been treated with IV levaquin and clindamycin for post obstructive pneumonia and continues to have fever. She tells me she knows she will of this condition and just wants to go home. She wants to continue dialysis. She wants to take antibiotics orally. Though she continues to have fever she feels much better than when she came in. She will be discharged on hospice as she requests on oral levaquin and clindamycin and will continue her dialysis as scheduled. 55 minutes were spent coordinating care with the patient and social human services assistants and shift stacker and in medicine reconciliation and documentation. Diagnosis - Discharge Diagnosis (1) Cancer of right lung Status: Chronic (2) ESRD (end stage renal disease) on dialysis Status: Chronic (3) Hospice care Status: Acute (4) post obstructive pneumonia Status: Acute Specialty Discharge - Follow Up or Referrals Follow up with: [facility] [Other] Discharge Plan - Discharge Data Disposition: Hospice - Home Condition at Discharge: Guarded Discharge Diet: advance to your usual diet Activity: resume usual activities as tolerated - Discharge Medications New Albuterol/Ipratropium Neb [Duoneb] 3 ml RESP TX RT Q6H Albuterol/Ipratropium Neb [Duoneb] 3 ml RESP TX RT Q4H PRN PRN Reason: Shortness Of Breath/Wheezing guaiFENesin ER TAB [Mucinex] 600 mg PO BID tablet Ibuprofen Tab [Motrin Tab] 400 mg PO Q4H PRN tablet PRN Reason: Fever, Headache, Mild Pain Clindamycin HCl [Clindamycin Cap] 300 mg PO Q6HR #120 capsule Levofloxacin Tab [Levaquin Tab] 500 mg PO QOTHER DAY #10 tablet Continue Calcitriol [Rocaltrol] 0.25 mcg PO MOWEFR Losartan Potassium 25 mg PO QAM Insulin NPH Hum/Reg Insulin Hm [NovoLIN 70/30] 10 unit SUBCUT BID W/MEALS Carvedilol [Coreg] 12.5 mg PO BID traMADol TAB [Ultram] 100 mg PO Q6H PRN PRN Reason: Pain Calcium Acetate [Phoslo] 667 mg PO TID W/MEALS Atorvastatin [Lipitor] 40 mg PO QAM Apixaban [Eliquis] 5 mg PO BID #60 tablet Ondansetron HCl 8 mg PO Q8H PRN PRN Reason: Nausea/Vomiting - Follow Up or Referral Follow Up: [facility] [Other] - Forms/Instructions Instructions: Clindamycin (By mouth), Levofloxacin (By mouth), Lung Cancer (DC) , Diabetic Foot Care (DC), Diabetes Mellitus Type 2 in Adults (DC), Hyperlipidemia (DC) Additional Discharge Instructions: use tylenol for fever. [facility] will resume. continue hemodialysis as before. Exam - Constitutional Vitals: Period Temp Pulse Resp BP Sys/Montero Pulse Ox Last 24 Hr 97.4 F-102.5 F 83-108 18-24 92-144/40-74 92-100 General appearance: normal weight, no acute distress - Eye Eye exam: Present: EOMI. Absent: scleral icterus - Respiratory Respiratory exam: Present: clear to auscultation bilaterally (with decreased breath sounds on the right) - Cardiovascular Cardiovascular exam: Present: regular rate and rhythm - GI/Abdominal GI/Abdominal exam: Present: normal bowel sounds, soft. Absent: tenderness - Extremities Exam Extremities exam: Absent: edema Discharge Results Procedures and tests throughout hospitalization: Pending Orders 10/30/16 23:11 Sputum Culture and Gram Stain Routine 11/03/16 04:00 XR chest 2V IN AM Labs on day of discharge: Labs from last 24 hours 11/02/16 11/02/16 11/02/16 10:57 07:22 01:18 POC Glucose 150 H 158 H 86 11/01/16 11/01/16 20:22 15:32 POC Glucose 242 H 218 H Preliminary micro results at discharge 10/30/16 23:11 Sputum Culture - Preliminary Sputum Yeast DS: Provider Date of admission: 10/26/16 14:06 Primary care physician: Zafar Machado MD Attending physician on admission: Natalee Garcia MD Consults: 10/26/16 14:57 Consult to Physician [CONS] Routine Comment: Newly diagnosed lung cancer. Consulting Provider: Modesto Oliveros Consult to Specialist Group: Oncology When should Consulting Provider be notified: In am Person Notified: Dr. Oliveros Date Notified: 10/26/16 Time Notified: 16:06 Consult to Physician [CONS] Routine Comment: Postobstructive pneumonia Consulting Provider: Jay Lima Consult to Specialist Group: Pulmonology When should Consulting Provider be notified: Now Person Notified: Date Notified: 10/26/16 Time Notified: 16:04 10/26/16 14:58 Consult to Case Mgmt/Social Srvs [CONS] Routine Reason for Case Mgmt/Social Srvs: Discharge Planning Consult to Occupational Therapy [CONS] Routine Reason for Occupational Therapy: Evaluate and Treat Consult to Physical Therapy [CONS] Routine Reason for Physical Therapy: Evaluate and Treat 10/26/16 15:00 Consult to Physician [CONS] Routine Comment: ESRD Saturday Consulting Provider: Godwin Hill Consult to Specialist Group: Nephrology When should Consulting Provider be notified: Now Person Notified: Dr. Hill Date Notified: 10/26/16 Time Notified: 16:03 10/26/16 16:18 Consult to Pastoral Services [CONS] Routine Comment: Pastoral Screen: Request [employer] Teacher Visit Pastoral Screen Source of Request: Patient 10/28/16 09:58 Consult to Case Mgmt/Social Srvs [CONS] Routine Reason for Case Mgmt/Social Srvs: Hospice Referral Consult Comment: Please consult [facility] on 10/29/2016. Discharging clinician: Yamilex Frausto MD
[2016-11-02] MEDS: APIXABAN 5 MG TABLET PO SCH (13:27)
[2016-11-02] MEDS: ATORVASTATIN 40 MG TABLET PO SCH (13:27)
[2016-11-02] MEDS: INSULIN NPH/REGULAR 70/30 100 UNIT/ML SUBCUT SCH (13:32)
[2016-11-02] MEDS: DESITIN 4OZ/NYSTATIN 15 GRAM MIXTURE PASTE TOP SCH (13:34)
[2016-11-02] MEDS: CARVEDILOL 12.5 MG TABLET PO SCH (13:34)
[2016-11-02] MEDS: LOSARTAN 25 MG TABLET PO SCH (13:34)
[2016-11-02 14:10] VITALS: BP 110/53
== END 2016-11-02 15:30 | disposition hospice, home (50) | DRG 190 ==
LOC: N.ED 11:41 → SUATTDRO 14:06 → N.EDINP 14:06 → N.5E 16:00
PROVIDERS: ADMIT Internal Medicine; ATTEND Internal Medicine